=== PATIENT | female | born 1945 | race Caucasian/White ===

== ENCOUNTER → 2022-11-24 15:03 | Outpatient (BNVA) | payer MEDICARE, OTHER, SELFPAY | PROVIDERS: PCP Internal Medicine; Visit Provider Hospitalist | DX: R94.39 Abnormal result of other cardiovascular function study (principal); J45.909 Unspecified asthma, uncomplicated; J84.9 Interstitial pulmonary disease, unspecified | CPT/HCPCS: 99202 ==

== ENCOUNTER 2023-01-25 13:16 | Outpatient (REF) | payer MEDICARE, OTHER, SELFPAY ==
[2023-01-25 14:06] LABS: MANUAL DIFF FLAG NO
[2023-01-25 14:48] LABS: Basophils Absolute Auto 0.1 X10*3/uL (0.0-0.2); Basophils Percent Auto 0.8 % (0-2); Eosinophils Absolute Auto 0.2 X10*3/uL (0.0-0.4); Eosinophils Percent Auto 1.9 % (0-4); Hematocrit 39.5 % (37.0-47.0); Hemoglobin 13.1 g/dl (12.0-16.0); Imm Gran Abs Auto 0.04 X10*3/uL (0.00-0.03); Imm Gran Pct Auto 0.5 % (0.0-0.4); Lymphocytes Absolute Auto 1.5 X10*3/uL (1.2-4.9); Lymphocytes Percent Auto 18.9 % (20-40); Mean Corpuscular HGB Conc 33.2 g/dl (31.0-35.0); Mean Corpuscular Hemoglobin 31.4 pg (27.0-33.0); Mean Corpuscular Volume 94.7 fL (80.0-98.0); Mean Platelet Volume 9.7 fL (9.4-12.3); Monocytes Absolute Auto 0.4 X10*3/uL (0.1-1.2); Monocytes Percent Auto 5.2 % (2-11); Neutrophils Absolute Auto 5.7 x10*3/uL (2.0-8.3); Neutrophils Percent Auto 72.7 % (45-73); Platelet Count 213 X10*3/uL (160-400); Red Blood Count 4.17 X10*6/uL (4.20-5.50); Red Cell Distribution Width 11.8 % (11.0-16.0); White Blood Count 7.8 X10*3/uL (4.8-10.8)
[2023-01-25 15:53] LABS: Erythrocyte Sedimentation Rate 7 MM/HR (0-20)
[2023-01-28 15:28] LABS: Anti Nuclear Antibody Screen NEGATIVE (NEGATIVE)
[2023-01-29 11:12] LABS: IgA 97 mg/dL (70-320); IgG 533 mg/dL (600-1540); IgM 89 mg/dL (50-300)
== END 2023-01-25 13:17 | disposition home or self-care (01) ==
LOC: HO.LAB 13:16
PROVIDERS: PCP Internal Medicine; Visit Provider Hospitalist
DX: J84.9 Interstitial pulmonary disease, unspecified (principal); J45.909 Unspecified asthma, uncomplicated; R94.39 Abnormal result of other cardiovascular function study; Z91.09 Other allergy status, other than to drugs and biological substances
CPT/HCPCS: 36415; 82784; 82785; 85025; 85652; 86003; 86038; 86039; 99212

== ENCOUNTER 2023-06-18 14:08 | Outpatient (REF) | payer MEDICARE, OTHER, SELFPAY ==
--- NOTE | ~2023-06-18 | XR_ITS ---
EXAMINATION: XR CHEST CLINICAL INFORMATION: Chest pain COMPARISON: None available. TECHNIQUE: 2 views of the chest were obtained. FINDINGS: The cardiac and mediastinal contours are normal. The lungs are clear. No pleural effusion or pneumothorax. Degenerative changes of the spine and mild scoliosis. Postsurgical changes to the left shoulder. Evidence of previous upper abdominal hernia repair with mesh. XR/XR chest 2V IMPRESSION: No evidence for acute disease in the chest.
== END 2023-06-18 14:09 | disposition home or self-care (01) ==
LOC: HO.XRAY 14:08
PROVIDERS: PCP Internal Medicine; Visit Provider Hospitalist
DX: J45.909 Unspecified asthma, uncomplicated (principal); J84.9 Interstitial pulmonary disease, unspecified; R07.9 Chest pain, unspecified
CPT/HCPCS: 71046; 99212

== ENCOUNTER 2023-06-18 14:08 | Outpatient (AMB) | payer MEDICARE, OTHER, SELFPAY ==
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
[2023-06-18 14:16] VITALS: PULSE 68; O2SAT 97; BMI 30.7
== END 2023-06-18 15:04 | disposition home or self-care (01) ==
PROVIDERS: PCP Internal Medicine; Visit Provider Hospitalist
DX: J45.909 Unspecified asthma, uncomplicated (principal); J84.9 Interstitial pulmonary disease, unspecified; R07.9 Chest pain, unspecified
CPT/HCPCS: 99214

== ENCOUNTER 2024-03-27 14:17 | Outpatient (AMB) | payer MEDICARE, OTHER, SELFPAY ==
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
[2024-03-27 14:30] VITALS: PULSE 69; O2SAT 97; BMI 26.5
== END 2024-03-27 14:51 | disposition home or self-care (01) ==
PROVIDERS: PCP Internal Medicine; Visit Provider Hospitalist
DX: J45.40 Moderate persistent asthma, uncomplicated (principal); J84.9 Interstitial pulmonary disease, unspecified; R07.9 Chest pain, unspecified
CPT/HCPCS: 99214

== ENCOUNTER → 2024-03-27 14:17 | Outpatient (BNVA) | payer MEDICARE, OTHER, SELFPAY | PROVIDERS: PCP Internal Medicine; Visit Provider Hospitalist | DX: J45.40 Moderate persistent asthma, uncomplicated (principal); J84.9 Interstitial pulmonary disease, unspecified; R07.9 Chest pain, unspecified; I47.10 Supraventricular tachycardia, unspecified | CPT/HCPCS: 99212 ==

== ENCOUNTER 2025-03-10 14:09 | Outpatient (AMB) | payer MEDICARE, OTHER, SELFPAY ==
[2025-03-10 14:13] VITALS: BP 132/74; PULSE 64; O2SAT 94; BMI 28.6
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
--- OUTSIDE RECORDS SUMMARY | 2025-03-10 15:20 | XMS_ITS | Encounter Summary ---
Author Organization [employer] Address [address] [facility] 7[address] [place] [address] Care Team Providers Care Shredding Machine Tender Name Role Phone Alicia Hdez MD Primary Care Provider [phone] Encounter Details Date Type Department Care Team (Late Contact Info) Description 10/19/[address] [facility] MEDICAL [address] [place] [address] Alicia Hdez MD [address] [place] [address] Social History Tobacco Use Types Packs/Day Years Used Date Smoking Tobacco: Never Smokeless Tobacco: Never Alcohol Use Standard Drinks/Week Comments Yes 1 (1 standard drink = 0.6 oz pur e alcohol) Comments Unknown Sex and Gender Information Value Date Recorded Sex Assigned at Female 10/18/2022 12:37 PM EST Legal Sex Female 8:36 PM EDT Gender Identity Female 10/18/2022 12:37 PM EST Sexual Orientation Straight 10/19/2022 12 :22 PM EST COVID-19 Exposure Response Date Recorded In the last 10 days, have yo u been in contact with someone who was confirmed or suspected to have Coronavirus/COVID-19? No / Unsure 10/19/2022 11:09 AM EST documented as of this encounter Plan of Treatment Upcoming Encounters Date Type Department Care Team (Late Contact Info) Description 06/11/2025 11:30 AM EDT Office Visit [facility] MEDICAL [address] [place] [address] Alicia Hdez MD [address] [place], [place] [phone] documented as of this encounter Procedures Procedure Name Priority Date/Time Associated Diagnosis Comments OXYCODONE/OXYMORPHO NE, WITH CONFIRMATION, ORAL FLUID Routine 07/25/2023 11:41 AM EDT documented in this encounter Results * (ABNORMAL) Oxycodone/Oxymorphone, w/Confirmation, Oral Fluid (07/25/2023 11:41 AM EDT) oxyCODONE+oxyMOR phone in Saliva POSITIVE(A) [facility] Comment: Reference range: Cutoff EQ 40 (NOTE) Test includes Oxycodone and Oxymorphone Confirmation performed by Mass Spectrometry oxyCODONE in Saliva POSITIVE(A) [facility] Oxycodone 348 [facility] Comment: Reference range: Cutoff EQ 40 Unit: ng/mL oxyMORphone in Saliva NEGATIVE [facility] Comment: Reference range: Cutoff EQ 40 Testing performed or reported by [facility], a Service of [facility], [address] [place] [id number] Xiang Myles MD, Manager Resort [facility]# [id number] 07/25/2023 11:4 1 AM EDT 07/25/2023 11:16 PM EDT Cherry Rodriguez SQUADRON WORKER LAB BODY FLUIDS AND STOOLS ORDER GRETCHEN Final Result Performing Organization Address [facility]/State/[facility] Co de Phone Number [facility] [address] [place] [phone] documented in this encounter Visit Diagnoses Not on filedocumented in this encounter Care Teams Shredding Machine Tender Relationship Specialty Start Date End Date Alicia Hdez MD [address] [place] [address] PCP - General Internal Medicine 10/25/22January Elsa Registered Nurse Case Management 08/08/23 documented as of this encounter
--- OUTSIDE RECORDS SUMMARY | 2025-03-10 15:20 | XMS_ITS | Continuity of Care Document ---
Author Organization [facility] Address [address] [place] [address] Phone Care Team Providers Care Population Health Coach Name Role Phone Filiberto Tena Unavailable Unavailable Allergies, Adverse Reactions, Alerts Substance Reaction Status Criticality morphine Active No Information Sulfa (Sulfonamide Antibiotics) Active No Information ibuprofen Active No Information Penicillins Active No Information Medications Medication Instructions Dosage Effective Dates (start - stop) Status Comments simvastatin 40 mg tablet - Activ e hydrochlorothiazide 25 mg tablet - Active citalopram 20 mg tablet - Active oxycodone 5 mg tablet as needed - Active loratadine 10 mg tablet - Active Procedures Procedure Date Endovenous Rf, 1st Vein Office/Oupt E&M New Pt 45 Mins 16 Advance Care Plan Duplex Scan-extrem Veins; Comp 16 Advance Directives Directive Yes / No Effective Date File Name No Information Encounters Encounter Description Practice Location Reason(s) For Visit Diagnoses Date Provider Providers Copied on Encounter [facility], [address], [place], [place], [id number], [place] tel:[phone] [place] Varicose veins of left lower extremities w oth complicationsVaric ose veins of left lower extremities with pain 6 Darinel De Los Santos. [address], [address], [facility] [place], [address], [place]. [phone] Referring Provider: Alicia Regalado, [address], [address]. tel:[phone] Office/Oupt E&M New Pt 45 Mins [facility], [address] [place] [address], [id number], tel:[phone] [place] Varicose veins of bilateral lower extremities with painVenous insufficiency (chronic) (peripheral) 6 [facility]. [address] [place] [address], [address], [place], [address], [place]. tel: [phone] Referring Provider: Alicia Regalado, [address], [address]. tel:[phone] [facility], [address] [place] [address], [place], [place], [id number], tel:[phone] [place] Chronic venous htn w oth comp of bilateral low extrm 6 [facility]. [address], [address], [place], [address], [place]. tel: [phone] Referring Provider: Alicia Regal[place], [address], [address]. tel:[phone] Family History Family Member Type Diagnosis Age At Onset No Information Payers Payer name Insurance type Covered constitution party ID Authoriza tion(s) No Information Social History Type Description Quantity Date Captured Comments Sex Female Smoking Status No Information Chief Complaint And Reason For Visit No Information Reason For Referral Reason For Referral No Information Plan Of Treatment Date Type Action Status Referral Ordered: Duplex Scan-extrem Veins; Comp ordered History Of Present Illness Encounter Date Complaint History Of Prese nt Illness No Information Functional Status Date Functional Assessmen t No Information Instructions Date Instruction Additional Infor mation No Information Assessments Type Assessment Date No Information Patient Care Teams Name Effective Dates (start - stop) Status Members No Information
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
--- OUTSIDE RECORDS SUMMARY | 2025-03-10 15:20 | XMS_ITS | Encounter Summary ---
Author Organization [employer] Address [address] 7[address] [place] [address] Care Team Providers Care Rotary Furnace Tender Name Role Phone Alicia Hdez MD Primary Care Provider [phone] Encounter Details Date Type Department Care Team (Late st Contact Info) Description 08/27/2024 Orders Only [facility] MEDICAL [address] [place] [address] ProviderGrey MD Social History Tobacco Use Types [...] Description 06/11/2025 11:30 AM EDT Office Visit [facility] MEDICAL [address] [place] [address] Alicia Hdez MD [address] [place] [address] documented as of this encounter Procedures Procedure Name Priority Date/Time Associated Diagnosis Comments ECG 12-LEAD Routine 08/20/2024 3:23 PM EDT documented in this encounter Results * ECG 12 lead (08/20/2024 3:23 PM EDT) us Historical Provider ECG ORDERABLES Final Res ult documented in this encounter Visit Diagnoses Not on filedocumented in this encounter Care Teams Rotary Furnace Tender Relationship Specialty Start Date End Date Alicia Hdez MD [address] [place] [address] PCP - General Internal Medicine 10/25/22January Elsa Registered Nurse Case Management 08/08/23 documented as of this encounter
--- OUTSIDE RECORDS SUMMARY | 2025-03-10 15:20 | XMS_ITS | Patient Health Record ---
Author Organization [facility] Address [address] [address] Support Name Relationship Address Phone VEE SUMNER Guarantor Unknown [phone] Allergies Allergen (clinical drug ingredient) Drug/Non Drug Allergy documented on EMR Reaction Allergy Type Onset Date Status Penicillin (uncoded) Unknown Allergy Active Substance with sulfonamide structure and antibacterial mechanism of action (substance) sulfa (uncoded) Unknown Allergy Active amoxicillin Amoxicillin Unknown Drug Allergy Act toby ibuprofen Ibuprofen Unknown Drug Allergy Active Reason For Referral No Information Medications Medication SIG (Take, Route, Frequency, Duration) Notes Start Date End Date Status Simvastatin 20 MG 1 tablet in the even ing Orally Once a day Active Decadron 4 MG 1 tablet Orally Once a day Active Lisinopril 30 MG 1 tablet Orally Once a day Active Sertraline HCl 20 MG/ML Give 100 mg by m outh one time a day for DEPRESSION Orally Once a day for 30 day(s) Active valACYclovir HCl 1 GM 1 tablet Orally Once a day Active Acetaminophen 325 MG 2 tab Orally every 6 hours prn Active Senna 8.6 MG 1 tablets at bedtime as needed Orally Once a day Active Flovent HFA 110 MCG/ACT 1 puff Inhalatio n Twice a day Active hydroCHLOROthiazide 25 MG 1 tablet in th e morning Orally Once a day Active Fleet Enema 7-19 GM/118ML PRN daily Rectal Active Benzonatate 150 MG 1 capsule Orally Thr ee times a day Active Atenolol 25 MG Give 12.5 mg by mout h one time a day for HTN Orally Once a day Active Problems Problem Type SNOMED Code ICD Code Onset Dates Problem Status W/U Status Risk Notes Problem 36658487 Essential hypertension (I10) Active confirmed Continue on hydrochlorothiazide atenolol and lisinopril Problem 98841892 Hypercholesterol peggy a (E78.00) Active confirmed Continue on simvastatin physical and Occupational Therapy Plan Of Treatment No Information Insurance Providers Payer Name Payer Address Payer Phone Subscriber Number Group Number Insured Name Patient Relationship to Insured Coverage Start Date Coverage End Date Medicare Of [employer] [place] [id number] [id number] VEE SUMNER Self - patient is the insured Medical (General) History Medical History History ICD Code Viral pneumonia, unspecified J12.9 COVID-19 U07.1 Essential (primary) hypertension I10 Unspecified asthma with (acute) exacerba tion J45.901 Paroxysmal atrial fibrillation I48.0 Hyperlipidemia, unspecified E78.5 Major depressive disorder, recurrent, un specified F33.9 Age-related osteoporosis without current pathological fracture M81.0 Other specified anxiety disorders F41.8 Surgical History Surgery Date(Month/Year) No history Hospitalization History Reason Date(Month/Year) [facility] with COVID 19 09/2020
--- OUTSIDE RECORDS SUMMARY | 2025-03-10 15:20 | XMS_ITS ---
Author Organization [facility] Care Team Providers Care Tow Feeder Name Role Phone Kian Torre Unavailable Unavailable Milena Lee Unavailable Unavailable Allergies and adverse reactions Code CodeSystem Substance Reaction Severity StartDate Concern Status 404997507 SNOMED CT Sulfa Antibiotics Nausea (co de- 265923144, SNOMED CT) Moderate 10/13/[address] Penicillins Nausea (code- 672374566, SNOMED CT) Moderate 10/13/2020 active 5640 RXNORM Ibuprofen Nausea (code- 390751190, SNOMED CT) Moderate 10/13/2020 active 723 RXNORM Amoxicillin Nausea (code- 734128863, SNOMED CT) Moderate 10/13/2020 active Care Team Name Role Address Phone Organization Dates Kian Torre PCP [address], [place], [address], [place] (Office): : [facility] 10/13/2020 - 10/19/2020 Milena Lee [address], [place], [address], [place] (Office): [facility] 10/13/2020 - 10/19/2020 Mental Status Section Date Assessment Total Score Description 10/19/2020 BIMS 15 cognitively int act CAM 0 No delirium ind icated PHQ-9 14 moderate depres mira Problems Problem # Description Date of onset Resolved Date Code CodeSystem Concern Status 1 BRADYCARDIA, UNSPECIFIED 10/13/[address] active 2 COVID-19 10/13/[address] active 3 ESSENTIAL (PRIMARY) HYPERTENSION 10/13/[address] active 4 HYPERLIPIDEMIA, UNSPECIFIED 10/13/[address] active 5 MAJOR DEPRESSIVE DISORDER, RECURRENT, UNSPECIFIED 10/13/[address] active 6 MUSCLE WASTING AND ATROPHY, NOT ELSEWHERE CLASSIFIED, UNSPECIFIED SITE 10/13/[address] active 7 OTHER FATIGUE 10/13/[address] acti ve 8 PAROXYSMAL ATRIAL FIBRILLATION 10/13/[address] active 9 UNSPECIFIED ASTHMA WITH (ACUTE) EXACERBATION 10/13/[address] active 10 VIRAL PNEUMONIA, UNSPECIFIED 10/13/[address] active Reason for Referral No Reasons for Referral Entered Social History Social History Observation Description Start Date End Date Code Code System Current Smoking Status Tobacco smoking consumption unknown 230431225 SNOMED CT Sex Assigned At Female 1945 31845-9 [facility] Gender Identity Vital Signs Code Code System Vitals Name Values and Units Timing Information 9279-1 [facility] Respiratory Rate Value=18.0 Units=/m in 10/19/2020 8462-4 [facility] Blood Pressure-Diastolic Value=63 Un its=mmHg 10/19/2020 8480-6 [facility] Blood Pressure-Systolic Ntrit=977 Un its=mmHg 10/19/2020 8310-5 [facility] Body Temperature Value=97.6 Units=?? F 10/19/2020 8867-4 [facility] Heart rate Value=60.0 Units=/min 84236-5 [facility] O2 % BldC Oximetry Value=95.0 Units= % 10/19/2020 05590-8 [facility] Pain Level Value=0.0 10/19/2020 72719-7 [facility] Weight Wcnez=390.6 Units=Lbs 8302-2 [facility] Height Value=62.0 Units=Inches 10/14/2020
--- OUTSIDE RECORDS SUMMARY | 2025-03-10 15:20 | XMS_ITS | Encounter Summary ---
Author Organization [employer] Address [address] 7[address] [place] [address] Care Team Providers Care Sawmill Moulder Operator Name Role Phone Alicia Hdez MD Primary Care Provider [phone] Reason for Visit * Reason Comments Med Refill Encounter Details Date Type Department Care Team (Late st Contact Info) Description 02/12/2023 Refill [facility] MEDICAL [address] [place], [place] [phone] Alicia Hdez MD [address] [place] [address] Chronic pain disorder Social History Tobacco Use Types Packs/Day Years Used Date Smoking Tobacco: Never Smokeless Tobacco: Never Alcohol Use Standard Drinks/Week Comments Yes 1 (1 standard drink = 0.6 oz pur e alcohol) PHQ-2 Answer Date Recorded Patient Health Questionnaire-2 Score 0 01/05/2023 Depression Answer Date Recorded Patient Health Questionnaire-2 [...] suspected to have Coronavirus/COVID-19? No / Unsure 02/02/2023 12:03 PM EDT documented as of this encounter Miscellaneous Notes * Telephone Encounter - Alana Pennington - 02/14/2023 12:00 PM EDT Oxycodone/APAP 5-325 # 112/28 days [facility] Last fill Date: 01/16/23 Last OV: 02/02/23 Next OV: 05/08/23 Last UTOX: 03/02/22 should be updated CSA Date: should be updated DNF Date: patient is due Reminder set up for next refill documented in this encounter Plan of Treatment Upcoming Encounters Date Type Department Care Team (Late st Contact Info) Description 06/11/2025 11:30 AM EDT Office Visit [facility] MEDICAL [address] [place] [address] Alicia Hdez MD [address] [place] [address] documented as of this encounter Visit Diagnoses Diagnosis Chronic pain disorder Chronic pain syndrome documented in this encounter Care Teams Sawmill Moulder Operator Relationship Specialty Start Date End Date Alicia Hdez MD [address] [place] [address] PCP - General Internal Medicine 10/25/22January Elsa Registered Nurse Case Management 08/08/23 documented as of this encounter
--- OUTSIDE RECORDS SUMMARY | 2025-03-10 15:20 | XMS_ITS ---
Author Organization [facility] Care Team Providers Care Ict Support Engineer Name Role Phone , Vikram Unavailable Unavailable Shayan, Letha Unavailable Unavailable Eckensaranyae, Genoveva Unavailable Unavailable Albert, Ikram Unavailable Unavailable Urkevic, Akin Unavailable Unavailable Magoba, Angelica Rosenda Unavailable Unavailable Mike, Helder Unavailable Unavailable Ze, Tj Unavailable Unavailable Allergies and adverse reactions Code CodeSystem Substance Reaction Severity StartDate Concern Status 731305556 SNOMED CT Sulfa Antibiotics Unknown 10/10/2020 active 7984 RXNORM Penicillin Unknown 10/10/2020 active Lactose Nausea (code- 030527048, SNOMED CT) Mild 10/12/2020 active 5640 RXNORM Ibuprofen Unknown 10/10/2020 active 723 RXNORM Amoxicillin Unknown 10/10/2020 active Care Team Name Role Address Phone Organization Dates Vikram Jajat PCP [address], [address], [place] (Office): : : [facility] 10/11/2020 - 10/13/2020 Letha Downey [address], [address], [facility] (Office): [facility] 10/11/2020 - 10/13/2020 Genoveva Marshallrode [address] [facility], [place], [address], [place] (Office): : [facility] 10/11/2020 - 10/13/2020 Garfield Price [address] [facility] [address], [place], [address], [place] (Office): : [facility] 10/11/2020 - 10/13/2020 Akin Lou [address] [place], [address], [place] (Office): : [facility] 10/11/2020 - 10/13/2020 Angelica Montoya [id number] [place] [address], [address], [place] (Office): : [facility] 10/11/2020 - 10/13/2020 [facility] [address] [place], [address], [place] (Office): [facility] 10/11/2020 - 10/13/2020 Tj Kunz [address] [facility] [address], [place], [address], [place] (Office): [facility] 10/11/2020 - 10/13/2020 Medications Section Medication Name Status Code CodeSystem Dose Route Frequency Admin Type Sig Text Start Date End Date Fleet Enema Enema 7-19 GM/118ML active 203613 RXNORM 1 unit Rectal as needed PRN Insert 1 unit rectal ly every 24 hours as needed for Consti pation Use only if Bisaco dyl Suppos itory is ineffe ctive 2019 - Acetaminophen Tablet 325 MG active 963727 RXNORM 2 tablet Oral as needed PRN Give 2 tablet by mouth every 6 hours as needed for Pain Do not exceed 3 grams in 24 hours. T otal 650 mg AND Give 2 tablet by mouth every 6 hours as needed for Elevat ed temp >101 Do not exceed 3 grams in 24 hours. T otal 650 mg 2019 - 369805 RXNORM 2 tablet Oral as needed PRN Give 2 tablet by mouth every 6 hours as needed for Pain Do not exceed 3 grams in 24 hours. T otal 650 mg AND Give 2 tablet by mouth every 6 hours as needed for Elevat ed temp >101 Do not exceed 3 grams in 24 hours. T otal 650 mg 2019 - Senna Tablet 8.6 MG active 079154 RXNORM 1 tablet Oral as needed PRN Give 1 tablet by mouth every 24 hours as needed for Consti pation 2019 - Flovent HFA Aerosol 110 MCG/ACT active 284749 RXNORM 1 puff Inhalat ion two times a day Routine 1 puff inhale orally two times a day for asthma 2019 - Sertraline HCl Concentrate 20 MG/ML active 163970 RXNORM 100 mg Oral one time a day Routine Give 100 mg by mouth one time a day for DEPRES DANIEL 2019 - valACYclovir HCl Tablet 1 GM active 631480 RXNORM 1 tablet Oral one time a day Routine Give 1 tablet by mouth one time a day for shingl es 2019 - Decadron Tablet 4 MG active 359882 RXNORM 1 tablet Oral two times a day Routine Give 1 tablet by mouth two times a day for PNA 2019 - Lisinopril Tablet 30 MG active 118205 RXNORM 1 tablet Oral one time a day Routine Give 1 tablet by mouth one time a day for HTN 2019 - Simvastatin Tablet 20 MG active 805032 RXNORM 1 tablet Oral at bedtime Routine Give 1 tablet by mouth at bedtim e for HLD 2019 - Benzonatate Capsule 150 MG active 264031 RXNORM 1 capsul e Oral three times a day Routine Give 1 capsul e by mouth three times a day for COUGH 2019 - Atenolol Tablet 25 MG active 985885 RXNORM 12.5 mg Oral one time a day Routine Give 12.5 mg by mouth one time a day for HTN 2019 - hydroCHLOROth iazide Tablet 25 MG active 968989 RXNORM 1 tablet Oral in the morning Routine Give 1 tablet by mouth in the mornin g for HTN 2019 - Mental Status Section Date Assessment Total Score Description 10/13/2020 BIMS 15 cognitively int act CAM 0 No delirium ind icated PHQ-9 00 Problems Problem # Description Date of onset Resolved Date Code CodeSystem Concern Status 1 AGE-RELATED OSTEOPOROSIS WITHOUT CURRENT PATHOLOGICAL FRACTURE 10/10/[address] active 2 COUGH 10/10/[address] active 3 COVID-19 10/10/[address] active 4 ESSENTIAL (PRIMARY) HYPERTENSION 10/10/[address] active 5 HYPERLIPIDEMIA, UNSPECIFIED 10/10/[address] active 6 MAJOR DEPRESSIVE DISORDER, RECURRENT, UNSPECIFIED 10/10/[address] active 7 OTHER SPECIFIED ANXIETY DISORDERS 10/10/[address] active 8 PAROXYSMAL ATRIAL FIBRILLATION 10/10/[address] active 9 UNSPECIFIED ASTHMA WITH (ACUTE) EXACERBATION 10/10/[address] active 10 UNSPECIFIED PROTEIN-CALORIE MALNUTRITION 10/10/[address] active 11 VIRAL PNEUMONIA, UNSPECIFIED 10/10/[address] active Reason for Referral No Reasons for Referral Entered Social History Social History Observation Description Start Date End Date Code Code System Current Smoking Status Tobacco smoking consumption unknown 992274262 SNOMED CT Sex Assigned At Female 1945 [address] [facility] Gender Identity Vital Signs Code Code System Vitals Name Values and Units Timing Information 29585-8 LOINC Pain Level Value=1.0 10/13/2020 9279-1 LOINC Respiratory Rate Value=18.0 Units=/m in 10/13/2020 8462-4 LOINC Blood Pressure-Diastolic Value=66 Un its=mmHg 10/13/2020 8480-6 LOINC Blood Pressure-Systolic Qpvwe=085 Un its=mmHg 10/13/2020 8310-5 LOINC Body Temperature Value=97.4 Units=?? F 10/13/2020 8867-4 LOINC Heart rate Value=62.0 Units=/min 87644-8 LOINC O2 % BldC Oximetry Value=97.0 Units= % 10/13/2020 2339-0 LOINC Blood Sugar Urvoy=254.0 Units=mg/dL 10/13/2020 8302-2 LOINC Height Value=62.0 Units=Inches 10/11/2020 58863-8 LOINC Weight Sglqk=783.2 Units=Lbs
--- OUTSIDE RECORDS SUMMARY | 2025-03-10 15:20 | XMS_ITS ---
Author Organization [facility] Address [address] [place] [address] Care Team Providers Care Neon Molder Name Role Phone Alicia Hdez MD Primary Care Provider Unavailab Jose Manuel Denton Unavailable [phone] REASON FOR VISIT Refax NEOS Encounters Encounter Location Date Provider Diagnosis [address] [address] 02/06/2025 Jose Manuel Oliveira Plan Of Treatment Next Appt Details Provider Name:Jose Manuel Oliveira , 04/13/2025 02:45:00 PM, [address] [facility], [address], [place], [address], Progress Notes * Giselle SHRESTHA DDOB: [birth year] (79 yo F)Acc No.[id number]:02/06/2025 Patient:?Giselle SHRESTHA :1945???Age:79 Y???Sex:Female Address:[address] [facility] [address] [address] * true * Date:? Generated for Jili natasha/Elvia/eTransmitting on:?03/10/2025 03:20 PM EDT
--- OUTSIDE RECORDS SUMMARY | 2025-03-10 15:20 | XMS_ITS ---
Author Organization [facility] Address [address] [place] [address] Care Team Providers Care Coil Rewind Machine Operator Name Role Phone Alicia Hdez MD Primary Care Provider Unavailab Jose Manuel Denton Unavailable [phone] REASON FOR VISIT wants note faxed to [facility] Encounters Encounter [facility] Date [facility] [address] [facility]/2025 Jose Manuel Oliveira Plan Of Treatment Next Appt Details Provider Name:Jose Manuel Oliveira , 04/13/2025 02:45:00 PM, [facility], [address] [address], [place], [address], Progress Notes * Giselle SHRESTHA DDOB: (79 yo F)Acc No.[id number]:02/04/2025 Patient:?Giselle SHRESTHA :1945???Age:79 Y???Sex:Female Address:[address] [facility] [address] [address] * true * Date:? Generated for Printi natasha/Fasamanthag/eTransmitting on:?03/10/2025 03:20 PM EDT
--- OUTSIDE RECORDS SUMMARY | 2025-03-10 15:21 | XMS_ITS | Continuity of Care Document ---
Author Organization [facility] Address [address] [place] [address] Phone Care Team Providers Care Furniture Mover Name Role Phone Geovany PAL, RVT, RPVI, Tj Unavailable U navailable Allergies, Adverse Reactions, Alerts Substance Reaction Status Criticality gabapentin Active No Information doxycycline Active No Information buspirone Active No Information tetracycline Active No Information Sulfa (Sulfonamide Antibiotics) Active No Information PENICILLIN Active No Information aspirin Active No Information Medications Medication Instructions Dosage Effective Dates (start - stop) Status Comments lisinopril 40 mg tablet - Active rosuvastatin 40 mg tablet - Acti ve montelukast 10 mg tablet - Activ e Eliquis 5 mg tablet - Active cetirizine 10 mg tablet - Active carvedilol 6.25 mg tablet - Acti ve Procedures Procedure Date Office/Outpt E&M Established 25 Mins- CT & [place] Duplex Scan-extrem Veins; Comp- CT & [place] Duplex Scan-extrem Veins; Uni/ CT & [place] D Duplex Scan-extrem Veins; Uni/ CT & [place] D Inj Scleros Solut; Mx Veins 1- CT & [place] D Ultrason Guidan Needle Bx-rad- CT & [place] D Inj Scleros Solut; Mx Veins 1- CT & [place] D Ultrason Guidan Needle Bx-rad- CT & [place] D PT Did Not Receive Services Duplex Scan-extrem Veins; Uni/ CT & [place] D Endovenous Laser, 1st Vein- CT & [place] Ultrason Guidan Needle Bx-rad- CT & [place] D Inj Sclerosing Solution; Sngl- CT & [place] D Office/Outpt E&M Established 15 Mins- CT & [place] Duplex Scan-extrem Veins; Comp- CT & [place] Duplex Scan-extrem Veins; Uni/ CT & [place] O ct Inj Scleros Solut; Mx Veins 1- CT & [place] O ct Duplex Scan-extrem Veins; Uni/ CT & [place] O ct Duplex Scan-extrem Veins; Uni/ CT & [place] O ct Inj Scleros Solut; Mx Veins 1- CT & [place] O ct Ultrason Guidan Needle Bx-rad- CT & [place] O Varithena, Single Truncal Vein - CT & [place] Offic/outpt E&m Estab 5 Min Trial- Telem edicine CT & [place] Office/Oupt E&M New Pt 30 Mins- CT & [place] Duplex Scan-extrem Veins; Comp- CT & [place] Advance Directives Directive Yes / No Effective Date File Name Other Directive No 11/26/2024 N/A WARNING:The information contained in this section is historical and is provided for information only and does not constitute a legal document or any assurance that the information is still accurate. Please verify the information with the [place] of the legal document before using it for clinical purposes. Encounters Encounter Description Practice Location Reason(s) For Visit Diagnoses Date Provider Providers Copied on Encounter Office/Outpt E&M Established 25 Mins- CT & [place] [facility], [address], [place], [id number], [place] tel:[phone] R - [place] Varicose veins of bilateral lower extremities with other complicationsE ssential (primary) hypertension Geovany PAL, RVT, CAROL Spencer. [address], [place], [id number] , [place]. [phone] Referring Provider: Alicia Regalado, [address], [address]. tel:[phone] [facility], [address] [place] [address] [address]Kevin [place], [id number], [place] tel:[phone] CVR - [place] Pain in right legPain in left leg 5 Geovany PAL RVT, CAROL Spencer. [address] [place] [address], [place], [id number] , [place]. [phone] Referring Provider: Alicia Regalado, [address] [place] [address], [address]. tel:[phone] [facility], [address] [place] [address] [address] Steele [address]Kevin [place], [id number], [place] [phone] CV[place] - [place] Encounter for follow-up examination after completed treatment for conditions other than malignant neoplasmVarico se veins of left lower extremity with pain 4 Geovany PAL RVT, CAROL Spencer. [address] [place] [address], [place], [id number] , [place]. [phone] Referring Provider: Alicia Regalado, [address] [place] [address], [address]. tel:[phone] [facility], [address] [place] [address] [facility] [address]Kevin [place], [id number], [place] tel:[phone] [place] Encounter for follow-up examination after completed treatment for conditions other than malignant neoplasmPain in left leg 4 Geovany PAL RVT, CAROL Spencer. [address] [place] [address], [facility] [place], [id number] , [place]. [phone] Referring Provider: Alicia Regalado, [address], [address]. tel:[phone] [facility], [address] [place] [address] [address]Kevin [place], [id number], [place] tel:[phone] CVR - [facility] Chronic venous hypertension (idiopathic) with inflammation of left lower extremity 4 Geovany PAL RVT, CAROL Spencer. [address] [place] [address], [place] [address], [facility] [place] [place], [id number] , [place]. [phone] Referring Provider: Alicia Regalado, [address], [address]. tel:[phone] [facility], [address] [place] [address] Dr Steele [address]Kevin [place], [id number], [place] tel:[phone] CVR - [facility] Varicose veins of left lower extremity with other complications 4 eGovany PAL RVT, RPVI Robert. [address] [place] [address], [facility] [place], [id number] , [place]. [phone] Referring Provider: Alicia Reaglado, [address], [address]. tel:[phone] [facility], [address] [place] [address] Dr [address] [address] [place], [id number], [place] tel:[phone] CVR - [facility] No Information 4 Geovany PAL RVT, RPVI Robert. [address] [place] [address], [place] [address], [facility] [place] [place], [id number] , [place]. [phone] Referring Provider: Alicia Regalado, [address], [address]. tel:[phone] [facility], [address] [place] [address] [address]Kevin [place], [id number], [place] tel:[phone] CVR - [facility] Encounter for follow-up examination after completed treatment for conditions other than malignant neoplasmPain in right leg 4 Geovany PAL RVT, RPVI Robert. [address] [place] [address], [place] [address], [facility], [id number] , [place]. tel:[phone] Referring Provider: Alicia Regalado, [address], [address]. tel:[phone] [facility], [address] [place] [address] Dr [address] 1000[facility] [address]Kevin [place], [id number], [place] tel:[phone] CV[place] Chronic venous hypertension (idiopathic) with inflammation of right lower extremity 4 Geovany PAL RVT, CAROL Spencer. [address] [place] [address], [place], [place], [id number] , [place]. [phone] Referring Provider: Alicia Regalado, [address] [place] [address], [address]. tel:[phone] Office/Outpt E&M Established 15 Mins- CT & [place] [facility], [address] [place] [address] [place] [address], [id number], [place] tel:[phone] [place] Varicose veins of bilateral lower extremities with other complicationsE ssential (primary) hypertensionPr uritus, unspecified 4 Geovany PAL RVT, RPVI Robert. [address] [place] [address], [place], [place], [id number] , [place]. [phone] Referring Provider: Alicia Regalado, [address] [place] [address], [address]. tel:[phone] [facility], [address] [place] [address] [facility] [address] [address], [id number], [place] tel:[phone] [place] Varicose veins of bilateral lower extremities with pain 4 Geovany PAL RVT, RPVI Robert. [address] [place] [address], [place], [place], [id number] , [place]. tel:[phone] Referring Provider: Alicia Regalado, [address] [place] [address], [address]. tel:[phone] [facility], [address] [place] [address] Dr Steele 1000[address] 1000Kevin [place], [id number], [place] tel:[phone] [place] Encounter for follow-up examination after completed treatment for conditions other than malignant neoplasmVarico se veins of left lower extremity with other complications Oct-1 4 Geovany PAL RVT, RPVI Robert. [address] [place] [address], [place], [place], [id number] , [place]. tel:[phone] Referring Provider: Alicia Regalado, [address], [address]. tel:[phone] [facility], [address] [place] [address] [address] [address] [place], [id number], [place] tel:[phone] [place] Venous insufficiency (chronic) (peripheral) Oct-0 4 Geovany PAL RVT, RPVI Robert. [address] [place] [address], [place], [place], [id number] , [place]. tel:[phone] Referring Provider: Alicia Regalado, [address], [address]. tel:[phone] [facility], [address] [place] [address] Dr [address] [facility] [place], [id number], [place] tel:[phone] [place] Varicose veins of left lower extremity with inflammation Oct-0 4 Geovany PAL RVT, RPVI Robert. [address] [place] [address], [place], [place], [id number] , [place]. [phone] Referring Provider: Alicia Regalado, [address], [address]. tel:[phone] [facility], [address] [place] [address] Dr Steele 1000Suite Kevin Leiva [place], [id number], [place] tel:[phone] [place] Encounter for follow-up examination after completed treatment for conditions other than malignant neoplasmVarico se veins of right lower extremity with pain Oct-0 4 Geovany PAL RVT, RPVI Robert. [address] [place] [address], [place] [address], [facility] [place] [place], [id number] , [place]. tel:[phone] Referring Provider: Alicia Hdez MD D, [address] [place] [address], [address]. tel:[phone] [facility], [address] [place] [address] Dr [address] [facility] [place], [id number], [place] tel:[phone] [place] Varicose veins of right lower extremity with other complications Oct-0 4 Geovany PAL RVT, RPVI Robert. [address] [place] [address], [place] [address], [place], [id number] , [place]. tel:[phone] Referring Provider: Alicia Regalado, [address] [place] [address], [address]. tel:[phone] [facility], [address] [place] [address] Dr [address] [place], [place] [address] [place], [id number], [place] tel:[phone] [place] Varicose veins of right lower extremity with other complications Sep-2 4 Geovany PAL RVT, RPVI Robert. [address] [place] [address], [facility] [place] [place], [id number] , [place]. tel:[phone] Referring Provider: Alicia Regalado, [address] [place] [address], [address]. tel:[phone] Offic/outpt E&m Estab 5 Min Trial- Telemedicine CT & [place] [facility], [address] [place] [address] [address] [address] [address] [place], [id number], [place] tel:[phone] [place] Pruritus, unspecifiedLoc alized edemaCramp and spasmRestless legs syndromeVenous insufficiency (chronic) (peripheral)Es sential (primary) hypertension Sep-2 4 Geovany PAL RVT, RPVI Robert. [address] [place] [address], [place] [address], [place], [id number] , [place]. tel:[phone] Referring Provider: Alicia Hdez MD D, [address] [facility], [place], [address]. tel:[phone] [facility], [address] [place] [address] Dr [address] [facility] [address], [id number], [place] tel:[phone] [place] No Information 4 Geovany PAL RVT, RPVI Robert. [address] [place] [address], [place], [id number] , [place]. tel:[phone] Office/Oupt E&M New Pt 30 Mins- [place] & [place] [facility], [address] [place] [address] Dr Steele 1000[facility] [address], [id number], [place] tel:[phone] CVR - [facility] Varicose veins of bilateral lower extremities with other complicationsP ain in right lower legPain in left lower legPain in right legRestless legs syndromeEssent ial (primary) hypertensionPr uritus, unspecifiedPai n in left legCramp and spasmLocalized edema 4 Geovany PAL RVT, RPVI Robert. [address] [place] [address], [place], [id number] , [place]. tel:[phone] [facility], [address] [place] [address] Dr Steele 1000Suite [place] Leiva [place], [id number], [place] tel:[phone] [facility] Chronic venous hypertension (idiopathic) with other complications of bilateral lower extremityEdema , unspecified 4 Geovany PAL RVT, RPVI Robert. [facility], [place] [address], [place], [id number] , [place]. [phone] Referring Provider: Tj Armenta MD, RVT, RPVI, [address] [place] [address] [address] [facility], [place], [address] . tel:[phone] Family History Family Member Type Diagnosis Age At Onset No Information Payers Payer name Insurance type Covered constitution party ID Authoriza tion(s) Medicare [employer] [id number] [facility] [id number] Medical Assistance [facility] [id number] Social History Type Description Quantity Date Captured Comments Alcohol Use Details Unknown Caffeine Use Details Unknown Tobacco Use Status Current non-smoker Smoking Status Never Smoker Non-Smoking Tobacco Use Details : No Details Available : No Details Available Sex Female Vital Signs Date / Time: Height Weight BMI Pulse Rate Blood Pressure Temperature Respiratory Rate Body Surface Area Head Circumference Head Circ. Percentile Wt./[place]. Percentile BMI percentile Pulse Ox Inhaled Ox 65.770 kg (145.00 lbs) 26.5 5 kg/m eter (2) 128/86 mm[Hg] Chief Complaint And Reason For Visit No Information Reason For Referral Reason For Referral No Information Plan Of Treatment Date Type Action Status Goal Diet education completed Goal Diet education completed Goal Diet education completed Referral Ordered: Weight management: Referral to physician timeframe: 3 Months (related to Body mass index (BMI) 26.0-26.9, adult) ordered Referral Ordered: Weight management: Referral to physician timeframe: 3 Months (related to Body mass index (BMI) 26.0-26.9, adult) ordered Referral Ordered: Weight management: Referral to physician timeframe: 3 Months (related to Body mass index (BMI) 26.0-26.9, adult) ordered History Of Present Illness Encounter Date Complaint History Of Prese nt Illness No Information Functional Status Date Functional Assessmen t No Information Instructions Date Instruction Additional Infor mation Diet education Related to Body mass index (BMI) 26.0-26.9, adult Giving Encouragement to exercise Related to Body mass index (BMI) 26.0-26.9, adult Lifestyle education Related to B sixto mass index (BMI) 26.0-26.9, adult Compression stocking usage as conservative measure Related to Varicose veins of bilateral lower extremities with other complications Patient education booklet given Related to Varicose veins of bilateral lower extremities with other complications Diet education Related to Body mass index (BMI) 26.0-26.9, adult Giving Encouragement to exercise Related to Body mass index (BMI) 26.0-26.9, adult Lifestyle education Related to B sixto mass index (BMI) 26.0-26.9, adult Pre and post instruc tions reviewed and provided Related to Varicose veins of bilateral lower extremities with other complications Compression stocking usage as conservative measure Related to Varicose veins of bilateral lower extremities with other complications Pre and post instruc tions reviewed and provided Related to Localized edema Compression stocking usage as conservative measure Related to Localized edema Patient education booklet given Related to Varicose veins of bilateral lower extremities with other complications Pre and post instruc tions reviewed and provided Related to Varicose veins of bilateral lower extremities with other complications Diet education Related to Body mass index (BMI) 26.0-26.9, adult Giving Encouragement to exercise Related to Body mass index (BMI) 26.0-26.9, adult Lifestyle education Related to B sixto mass index (BMI) 26.0-26.9, adult Assessments Type Assessment Date No Information Patient Care Teams Name Effective Dates (start - stop) Status Members No Information
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
--- OUTSIDE RECORDS SUMMARY | 2025-03-10 15:21 | XMS_ITS | Patient Health Record ---
Author Organization [facility] Address [address] [place] [address] Care Team Providers Care Drilling Engineer Name Role Phone Ketty PAL, Alicia Primary Care Provider Unavailab Jose Manuel Denton Unavailable [phone] Allergies Allergen (clinical drug ingredient) Drug/Non Drug Allergy documented on EMR Reaction Allergy Type Onset Date Status citalopram Citalopram Hydrobromide heartbeat skips Drug Allergy Active gabapentin Gabapentin Unknown Drug Allergy Activ e ibuprofen Ibuprofen swelling Drug Allergy Active shrimp allergenic extract Shrimp (Diagnostic) Unknown Drug Allergy Active aspirin Aspirin Unknown Drug Allergy Active buspirone Buspirone Unknown Drug Allergy Active cortisone Cortisone Unknown Drug Allergy Active doxycycline Doxycycline Unknown Drug Allergy Act toyb morphine Morphine Unknown Drug Allergy Active Penicillin Unknown Drug Allergy Active Shellfish (FN) Shellfish-derived Products Unknown Drug Allergy Active Substance with sulfonamide structure and antibacterial mechanism of action (substance) Sulfa Antibiotics Unknown Drug Allergy Active tetracycline Tetracycline Unknown Drug Allergy A ctive tizanidine Tizanidine Unknown Drug Allergy Activ e Reason For Referral No Information Medications Medication SIG (Take, Route, Frequency, Duration) Notes Start Date End Date Status Atenolol 25 MG 1 tablet Orally Once a day for 30 day(s) Active Clopidogrel Bisulfate 75 MG 1 tablet Orally Not-Taking Albuterol Active eliquis 5 mg Not-Suresh ing Rosuvastatin Calcium 40 MG 1 tablet Oral ly Once a day Not-Taking hydroCHLOROthiazide 25 MG 1 tablet in th e morning Orally Once a day Not-Taking hydroCHLOROthiazide 25 MG 1 tablet Orall y Once a day Active eliquis 5 mg Active Clopidogrel Bisulfate 75 MG 1 tablet Ora lly Once a day for 30 day(s) Active amLODIPine Besylate Not-Taking Cetirizine HCl 10 MG 1 tablet Orally Onc e a day for 30 day(s) Active Simvastatin 40 MG 1 tablet every evening Orally Once a day for 30 day(s) Not-Taking Lisinopril 30 MG 1 tablet Orally Once a day Not-Taking Montelukast Sodium N ot-Taking valACYclovir HCl Not -Taking oxyCODONE HCl 5 MG 1 tablet as needed Orally every 6 hrs Not-Taking Sertraline HCl 50 MG 1 tablet Orally Onc e a day Active valACYclovir HCl 1 GM 1 tablet Orally On ce a day for 10 day(s) Active Rosuvastatin Calcium 40 MG 1 tablet Oral ly Once a day for 30 day(s) Active oxyCODONE HCl 5 MG 1 tablet as needed Orally every 6 hrs PRN Active Sertraline HCl Not-T aking Albuterol Not-Taking Ammonium Lactate 12 % 1 application Externally Twice a day for 30 days Active Loratadine Not-Takin g Multivitamins Active Citalopram Hydrobromide 20 MG 1 tablet Orally Once a day Not-Taking Montelukast Sodium 10 MG 1 tablet Orally Once a day for 30 day(s) Active Endocet 5-325 MG 1 tablet as needed Orally every 4 hours Not-Taking Lisinopril 30 MG 1 tablet Orally Once a day for 30 day(s) Active CeleXA 10 MG Orally Not-Suresh ing Compression Stockings 20-30mm Hg 1 pair wear daily for 30 days Active Walking Boot/Pneumatic As directed Wear Daily for Until further notice 01/17/2017 Not-Taking Social History Tobacco Use: Social History Observation Description Date Details (start date - stop date) Never Smoker NA - NA Tobacco use other than smoking: Question Answer Notes Are you an other tobacco user? No Tobacco Control (Standard) Question Answer Notes Tobacco use: Nonsmoker Additional Findings: Tobacco non-user Current no nsmoker AUDIT-C (Standard) Question Answer Notes Did you have a drink containing alcohol in the p ast year? No Points 0 Interpretation Negative Problems Problem Type SNOMED Code ICD Code Onset Dates Problem Status W/U Status Risk Notes Problem Atherosclerosis of one[place] arteries of the extremities ([id number]) Atherosclerosis of oneida artery of both lower extremities, with unspecified presence of clinical manifestation (I70.203) Active confirmed Q7(A), Q8(2B), Q9(1B,2 C) Vital Signs Blood pressure diastolic 80 mm Hg 01/21/2025 Height 5ft 2in in 01/21/2025 Blood pressure systolic 120 mm Hg 01/21/2025 Weight 145 lbs 01/21/2025 BMI 26.52 kg/m2 01/21/2025 Procedures Procedure Date Ordered Date Performed Result Body Sit e 08044-RKCRIWV NAIL, 6 OR MORE 05/14/2024 N/A 81224-Mtlo Destruction, 1-14 05/14/2024 N/A 30226-Fpafomti Plate 05/14/2024 N/A 69866-QLGW SKIN LESIONS, OVER 4 05/14/2024 N/A 95478-LYALILN NAIL, 6 OR MORE 10/15/2024 N/A 31065-CRMZ SKIN LESIONS, OVER 4 10/15/2024 N/A 65047-EYEWYQF NAIL, 6 OR MORE 01/21/2025 N/A 30710-NQUA SKIN LESIONS, OVER 4 01/21/2025 N/A Encounters Encounter Location Date Provider Diagnosis [address] [address] 05/14/2024 Jose Manuel Oliveira Atherosclerosis of oneida artery of both lower extremities, with unspecified presence of clinical manifestation I70.203 ; Plantar wart B07.0 ; Right foot pain M79.671 ; Tinea unguium B35.1 ; Pain in right toe(s) M79.674 ; Pain in left toe(s) M79.675 ; Xerosis of skin L85.3 and Ingrown nail L60.[address] [address] 10/15/2024 Jose Manuel Oliveira Atherosclerosis of oneida artery of both lower extremities, with unspecified presence of clinical manifestation I70.203 ; Tinea unguium B35.1 ; Pain in right toe(s) M79.674 ; Pain in left toe(s) M79.675 and Xerosis of skin L85.[address] [address] 01/21/2025 Jose Manuel Oliveira Atherosclerosis of oneida artery of both lower extremities, with unspecified presence of clinical manifestation I70.203 ; Tinea unguium B35.1 ; Pain in right toe(s) M79.674 ; Pain in left toe(s) M79.675 and Edema, lower extremity R60.0 [facility] [address] [address] 04/22/2024 Jose Manuel Oliveira [facility] [address] [address] 07/21/2024 Jose Manuel Roxanne [facility] [address] [place] [phone] 07[facility]29/20[facility] [address] [place] [phone] 01/21[facility]2025 [facility] [address] [place] [phone] 02/04/2025 [facility] [address] [address] 02/06/2025 Jose Manuel Oliveira Assessments Encounter Date Diagnosis (ICD Code) Assessment Notes Treatment Notes Treatment Clinical Notes Section Notes 05/14/2024 Plantar wart (ICD-10 - B07.0) 05/14/2024 Atherosclerosis of oneida artery of both lower extremities, with unspecified presence of clinical manifestation (ICD-10 - I70.203) 10/15/2024 Tinea unguium (ICD-10 - B35.1) 10/15/2024 Atherosclerosis of oneida artery of both lower extremities, with unspecified presence of clinical manifestation (ICD-10 - I70.203) 01/21/2025 Tinea unguium (ICD-10 - B35.1) 01/21/2025 Atherosclerosis of oneida artery of both lower extremities, with unspecified presence of clinical manifestation (ICD-10 - I70.203) Q7(A), Q8(2B), Q9(1B,2C) 10/15/2024 Pain in right toe(s) (ICD-10 - M79.674) 01/21/2025 Pain in right toe(s) (ICD-10 - M79.674) 05/14/2024 Right foot pain (ICD-10 - M79.671) 05/14/2024 Tinea unguium (ICD-10 - B35.1) 10/15/2024 Pain in left toe(s) (ICD-10 - M79.675) 01/21/2025 Pain in left toe(s) (ICD-10 - M79.675) 01/21/2025 Edema, lower extremity (ICD-10 - R60.0) 10/15/2024 Xerosis of skin (ICD-10 - L85.3) 05/14/2024 Pain in right toe(s) (ICD-10 - M79.674) 05/14/2024 Pain in left toe(s) (ICD-10 - M79.675) 05/14/2024 Xerosis of skin (ICD-10 - L85.3) 05/14/2024 Ingrown nail (ICD-10 - L60.0) Plan Of Treatment Pending Test Test Name Order Date 38807-XAMAAGC NAIL, 6 OR MORE 01/17/2017 08438-SGUITFV NAIL, 6 OR MORE 02/01/2017 16018-IDTIRUL NAIL, 6 OR MORE 04/15/2012 07402-VQFWRIP NAIL, 6 OR MORE 02/16/2014 32543-CXYPXIJ NAIL, 6 OR MORE 02/11/2024 49610-EQJKTTY NAIL, 6 OR MORE 05/14/2024 48558-NMCCZUA NAIL, 6 OR MORE 10/15/2024 81438-LITQZTM NAIL, 6 OR MORE 01/21/2025 00405-Ejmv Destruction, 1-14 05/14/2024 72680-Ixhz Destruction, 1-14 02/11/2024 28484-Iljv Destruction, 1-14 11/05/2023 45319-Vuqooeex Plate 05/14/2024 09429- Debride <25 sq cm 02/16/2014 34483-RUQM SKIN LESIONS, OVER 4 02/11/20 24 95902-RTEL SKIN LESIONS, OVER 4 11/05/19 24 31245-ETHT SKIN LESIONS, OVER 4 05/14/20 24 99670-ZYUK SKIN LESIONS, OVER 4 01/22/20 25 30727-CNEJ SKIN LESIONS, OVER 4 10/15/20 24 Next Appt Details Provider Name:Jose Manuel Oliveira , 04/13/2025 02:45:00 PM, [address] [facility], [address], [place], [address], Insurance Providers Payer Name Payer Address Payer Phone Subscriber Number Group Number Insured Name Patient Relationship to Insured Coverage Start Date Coverage End Date Medicare National [facility] [address] [place] [phone] [id number] Giselle Shrestha Self - patient is the insured [facility] [address] [place] [address] [id number] Giselle Shrestha Self - patient is the insured Medical (General) History Medical History History ICD Code anxiety Arthritis back, hip, knee pain chicken pox hypercholesterolemia measles mumps asthma Depression Diverticulosis Heart disease - heart will stop briefly occasionally Hypertension Osteoporosis chronic sinusitis Joint implants/screws Surgical History Surgery Date(Month/Year) gall bladder 11/2011 breast augmentation 2001 eye surgery 07/2023 heart surgery unspecified 2022 Stent insertion (Heart) 2023 back surgery 02/2024 legs, vein surgery eye surgery Hospitalization History Reason Date(Month/Year) [facility] 2017
--- OUTSIDE RECORDS SUMMARY | 2025-03-10 15:21 | XMS_ITS ---
[facility] Organization [facility] Address [address] [place] [address] Care Team Providers Care Receptionist Name Role Phone Ketty PAL, Alicia Primary Care Provider Unavailab Jose Manuel Denton Unavailable [phone] Allergies Allergen (clinical drug ingredient) Drug/Non Drug [...] Active doxycycline Doxycycline Unknown Drug Allergy Act toby morphine Morphine Unknown Drug Allergy Active Penicillin Unknown Drug Allergy Active Shellfish (FN) Shellfish-derived Products Unknown Drug Allergy Active Substance with sulfonamide structure and antibacterial mechanism of action (substance) Sulfa Antibiotics Unknown Drug Allergy Active tetracycline Tetracycline Unknown Drug Allergy A ctive tizanidine Tizanidine Unknown Drug Allergy Activ e REASON FOR VISIT At Risk Footcare, Painful Nail(s) aggravated by shoes and causing difficulty standing/walking., Swelling Medications Medication SIG (Take, Route, Frequency, Duration) Notes Start Date End Date Status Albuterol Active Citalopram Hydrobromide 20 MG 1 tablet Orally Once a day Not-Taking Endocet 5-325 MG 1 tablet as needed Orally every 4 hours Not-Taking CeleXA 10 MG Orally Not-Suresh ing Walking Boot/Pneumatic As directed Wear Daily for Until further notice 01/17/2017 Not-Taking Clopidogrel Bisulfate 75 MG 1 tablet Orally Not-Taking eliquis 5 mg Not-Suresh ing amLODIPine Besylate Not-Taking Simvastatin 40 MG 1 tablet every evening Orally Once a day for 30 day(s) Not-Taking Loratadine Not-Takin g Rosuvastatin Calcium 40 MG 1 tablet Oral ly Once a day Not-Taking hydroCHLOROthiazide 25 MG 1 tablet in th e morning Orally Once a day Not-Taking Lisinopril 30 MG 1 tablet Orally Once a day Not-Taking Montelukast Sodium N ot-Taking valACYclovir HCl Not -Taking Sertraline HCl 50 MG 1 tablet Orally Onc e a day Active Sertraline HCl Not-T aking Albuterol Not-Taking Ammonium Lactate 12 % 1 application Externally Twice a day for 30 days Active oxyCODONE HCl 5 MG 1 tablet as needed Orally every 6 hrs Not-Taking valACYclovir HCl 1 GM 1 tablet Orally On ce a day for 10 day(s) Active Rosuvastatin Calcium 40 MG 1 tablet Oral ly Once a day for 30 day(s) Active oxyCODONE HCl 5 MG 1 tablet as needed Orally every 6 hrs PRN Active Multivitamins Active Montelukast Sodium 10 MG 1 tablet Orally Once a day for 30 day(s) Active hydroCHLOROthiazide 25 MG 1 tablet Orall y Once a day Active eliquis 5 mg Active Clopidogrel Bisulfate 75 MG 1 tablet Ora lly Once a day for 30 day(s) Active Cetirizine HCl 10 MG 1 tablet Orally Onc e a day for 30 day(s) Active Lisinopril 30 MG 1 tablet Orally Once a day for 30 day(s) Active Atenolol 25 MG 1 tablet Orally Once a day for 30 day(s) Active Compression Stockings 20-30mm Hg 1 pair wear daily for 30 days Active Social History Tobacco Use: Social History Observation [...] ast year? No Points 0 Interpretation Negative Vital Signs Height 5ft 2in in 01/21/2025 Weight 145 lbs 01/21/2025 BMI 26.52 kg/m2 01/21/2025 Blood pressure systolic 120 mm Hg 01/22/20 25 Blood pressure diastolic 80 mm Hg 025 Procedures Procedure Date Ordered Date Performed Result Body Sit e 86396-[id number] NAIL, 6 OR MORE 01/21/2025 N/A 05807-LNYI SKIN LESIONS, OVER 4 01/21/2025 N/A Encounters Encounter Location Date Provider Diagnosis [facility] [place] [address] [place] [id number] 01/21/2025 Jose Manuel Oliveira Atherosclerosis of [place] artery of both lower extremities, with unspecified presence of clinical manifestation I70.203 ; Tinea unguium B35.1 ; Pain in right toe(s) M79.674 ; Pain in left toe(s) M79.675 and Edema, lower extremity R60.0 Assessments Encounter Date Diagnosis (ICD Code) Assessment Notes Treatment Notes Treatment Clinical Notes Section Notes 01/21/2025 Atherosclerosis of [place] artery of both lower extremities, with unspecified presence of clinical manifestation (ICD-10 - I70.203) Q7(A), Q8(2B), Q9(1B,2C) 01/21/2025 Tinea unguium (ICD-10 - B35.1) 01/21/2025 Pain in right toe(s) (ICD-10 - M79.674) 01/21/2025 Pain in left toe(s) (ICD-10 - M79.675) 01/21/2025 Edema, lower extremity (ICD-10 - R60.0) Plan Of Treatment Medication Medication Name Sig Start Date Stop Date Notes Compression Stockings 20-30mm Hg 1 pair wear daily for 30 days Pending Test Test Name Order Date [id number] NAIL, 6 OR MORE 01/21/2025 10593-GURD SKIN LESIONS, OVER 4 01/22/20 25 Next Appt Details Follow Up: prn, Reason: Provider Name:Jose Manuel Oliveira , 04/13/2025 02:45:00 PM, [address] [facility], [place] [address], [place], [phone], Procedure Notes * Category Sub-Category Detail Notes Debride Nail 6-10 Nail debridement Due to the cl inical pathology outlined in the exam findings, performance of this nail treatment is medically necessary as its management by an unskilled/untrained nonprofessional would put this patients foot and overall health at risk. Therefore, debridement to affected nail(s), as described in exam ( TA, T1, T4, T5, T6, T8, T9 ), was performed exclusively by the physician of record to reduce/remove overall nail length, girth, thickness, subungual debris, and necrotic tissue, by manual and/or electrical means through the use of a nail nipper and/or dremel-type sand mill grinder, to a more viable healthy nail plate or bed tissue 6-10 nails in total. Silver nitrate was used for any petechial bleeding as necessary. Definitive antifungal treatment options, both pharmaceutical and surgical, have been reviewed and discussed with the patient. The patient solely prefers the use of intermittent/as needed professional debridement services for their nail condition and understands the need for additional periodic treatments to maintain effectiveness in symptomatic relief - 61338 Keratoma Treatment Parring or Cutting o f Benign Hyperkeratotic Lesion(s) (-57) More than 4 Lesions - Due to the at risk nature of the patients medical condition as documented in the exam findings, performance of this keratoderma treatment is medically necessary as its management by an unskilled/untrained nonprofessional would put this patients foot and overall health at risk. Therefore, the benign hyperkeratotic lesions, (12) in total, locations as stated and described in the exam ( Medial plantar , IPJ , TA , Medial plantar , IPJ , T5 , SUB MTH (s) , 1 , B/L , SUB MTH (s) , 2 , B/L , SUB MTH (s) , 3 , B/L , SUB MTH (s) , 5 , B/L, Plantar Heel(s), B/L ), were pared, and/or cut utilizing a sterile 15 blade, tissue nippers, and/or power dremel instrumentation by the physician of record - 60853, Q8 Progress Notes * Giselle SHRESTHA DDOB: [birth year] (79 yo F)Acc No.[id number]:01/21/2025 Progress Note Patient:?Giselle SHRESTHA Provider:?Jose Manuel Oliveira DPM :1945???Age:79 Y???Sex:Female D ate:01/21/2025 Address:[address] [place] [address] [id number] Pcp:Alicia Hdez MD Subjective: * Chief Complaints: * ???At Risk FootcarePainful N ail(s) aggravated by shoes and causing difficulty standing/walking.Swelling * HPI: ???At Risk footcare:?Pt States Last PCP Visit:?Date?11/24/2024 ???Swelling:?Location:?Both feet/leg.?Duration:?several weeks.?Course:?worse.?Treatment:?elevation.? * ROS:?General/Constitutional:?Nausea?denies.?Vomiting?denies.?Hunger Thirst?denies.?Loss appetite?denies.?Chills?denies.?Fatigue?denies.?Fever?denies.?Night Sweats?denies.?Unexplained weight loss?denies.?Unexplained weight gain?denies.?HEENTM:?Dentures?denies.?Dizziness?denies.?Glasses/contacts?denies.?Retinopathy?de nies.?Blurred/double vision?denies.?TMJ?denies.?Discharge/drainage?denies.?Implants?denies.?Sore throat?denies.?Dental implants?denies.?Hard of hearing ?denies.?Difficulty chewing/swallowing/speaking?denies.?Nose bleeds?denies.?Sore mouth?denies.?Respiratory:?On Oxygen?denies.?Pneumonia/pleurisy?denies.?Bronchitis?denies.?Emphysema?denies.?C oughing?denies.?Cough blood?denies.?Shortness of breath?denies.?Wheezing?denies.?Cardiovascular:?Pacemaker?denies.?MVP?denies.?WPW?denies.?CHF?denies.?Heart attack?denies.?Septal defect?denies.?Rapid beat?denies.?Chest pain ?denies.?Atrial Fib.?denies.?Murmur/Palpitations?denies.?Gastrointestinal:?Hemorrhoids?denies.?Stomach/Abdominal pain?denies.?Dark blood stool?denies.?Irritable bowel ?denies.?Constipation?denies.?Diarrhea?denies.?Hematology:?Swelling?denies.?Clots?denies.?Varicose Veins?denies.?Bruising?, admits, on anticoagulants.?Bleeding problem?, admits, on anticoagulants.?Genitourinary:?Blood urine?denies.?Frequent/Painfu/urination/bladder control?denies.?Kidney stones?denies.?Infection (UTI)?denies.?Nephropathy?denies.?sex trans dis (STD)?denies.?Prostate?denies.?Musculoskeletal:?Hammertoes?denies.?Bunions?admits.?Back Pain??admits, recent back surgery.?Muscle Cramps/ Resting?denies.?Muscle cramps / walking?denies.?Generalized aches and pains?denies.?Weakness?denies.?Integ.:?Ruth?denies.?Scars?denies.?Corns/calluses?admits.?Ingrown nails?admits.?Painful nails?admits.?Open Sores?denies.?Rashes?denies.?Neurologic:?Difficulty sleeping?denies.?Brain disorder?denies.?Numbness?denies.?Balance trouble?denies.?Confusion?denies.?Fainting/blackouts?denies.?Tingling?denies.?Tr emors?denies.? * Medical History:? * Surgical History:?gall bladd er reast augmentation 2002eye surgery 07/2023heart surgery unspecified 2022Stent insertion (Heart) ack surgery 02/2024legs, vein surgery eye surgery * Hospitalization/Major Diagno stic Procedure:?[facility] 2017 * Family History:?Mother: dece ased, poor circulation, foot problems, diagnosed with Other malignant neoplasm of unspecified site, Diabetic - NIDDM, Unspecified essential hypertension, Unspecified heart disease, Family history of arthritis.?Father: , foot problems, diagnosed with Diabetic - NIDDM, Unspecified essential hypertension.?Children: two.? * Social History:?Tobacco Use:?Tobacco use other than smoking?Are you an other tobacco user??No ?Tobacco Control (Standard)?Tobacco use:?Nonsmoker ?Additional Findings: Tobacco non-user?Current nonsmoker ???Drugs/Alcohol:?Drugs?Have you used drugs other than those for medical reasons in the past 12 months??No ???Miscellaneous:?Caffeine: no. ?Children: yes. ?Exercise: yes, walking, sit ups. ?Marital status: single. ?Occupation: Retired. ???Drug/Alcohol:?AUDIT-C (Standard)?Did you have a drink containing alcohol in the past year??No ?Points?0 ?Interpretation?Negative * Medications:?TakingAlbuterol Atenolol 25 MG Tablet 1 tablet Orally Once a day Cetirizine HCl 10 MG Tablet 1 tablet Orally Once a day Clopidogrel Bisulfate 75 MG Tablet 1 tablet Orally Once a day eliquis 5 mg Tablet hydroCHLOROthiazide 25 MG Tablet 1 tablet Orally Once a day Lisinopril 30 MG Tablet 1 tablet Orally Once a day Montelukast Sodium 10 MG Tablet 1 tablet Orally Once a day Multivitamins oxyCODONE HCl 5 MG Tablet 1 tablet as needed Orally every 6 hrs , Notes to Pharmacist: PRNRosuvastatin Calcium 40 MG Tablet 1 tablet Orally Once a day valACYclovir HCl 1 GM Tablet 1 tablet Orally Once a day Sertraline HCl 50 MG Tablet 1 tablet Orally Once a day Ammonium Lactate 12 % Cream 1 application Externally Twice a day Taking Albuterol Taking Atenolol 25 MG Tablet 1 tablet Orally Once a day Taking Cetirizine HCl 10 MG Tablet 1 tablet Orally Once a day Taking Clopidogrel Bisulfate 75 MG Tablet 1 tablet Orally Once a day Taking eliquis 5 mg Tablet Taking hydroCHLOROthiazide 25 MG Tablet 1 tablet Orally Once a day Taking Lisinopril 30 MG Tablet 1 tablet Orally Once a day Taking Montelukast Sodium 10 MG Tablet 1 tablet Orally Once a day Taking Multivitamins Taking oxyCODONE HCl 5 MG Tablet 1 tablet as needed Orally every 6 hrs , Notes to Pharmacist: PRNTaking Rosuvastatin Calcium 40 MG Tablet 1 tablet Orally Once a day Taking valACYclovir HCl 1 GM Tablet 1 tablet Orally Once a day Taking Sertraline HCl 50 MG Tablet 1 tablet Orally Once a day Taking Ammonium Lactate 12 % Cream 1 application Externally Twice a day Not-Taking/PRNAlbuterol Sertraline HCl oxyCODONE HCl 5 MG Tablet 1 tablet as needed Orally every 6 hrs valACYclovir HCl Montelukast Sodium Lisinopril 30 MG Tablet 1 tablet Orally Once a day hydroCHLOROthiazide 25 MG Tablet 1 tablet in the morning Orally Once a day Rosuvastatin Calcium 40 MG Tablet 1 tablet Orally Once a day eliquis 5 mg Tablet Clopidogrel Bisulfate 75 MG Tablet 1 tablet Orally Simvastatin 40 MG Tablet 1 tablet every evening Orally Once a day amLODIPine Besylate Loratadine Walking Boot/Pneumatic As directed Wear Daily CeleXA 10 MG Tablet Orally Endocet 5-325 MG Tablet 1 tablet as needed Orally every 4 hours Citalopram Hydrobromide 20 MG Tablet 1 tablet Orally Once a day Medication List reviewed and reconciled with the patientNot-Taking/PRN Albuterol Not-Taking/PRN Sertraline HCl Not-Taking/PRN oxyCODONE HCl 5 MG Tablet 1 tablet as needed Orally every 6 hrs Not-Taking/PRN valACYclovir HCl Not- Taking/PRN Montelukast Sodium Not-Taking/PRN Lisinopril 30 MG Tablet 1 tablet Orally Once a day Not-Taking/PRN hydroCHLOROthiazide 25 MG Tablet 1 tablet in the morning Orally Once a day Not-Taking/PRN Rosuvastatin Calcium 40 MG Tablet 1 tablet Orally Once a day Not-Taking/PRN eliquis 5 mg Tablet Not-Taking/PRN Clopidogrel Bisulfate 75 MG Tablet 1 tablet Orally Not-Taking/PRN Simvastatin 40 MG Tablet 1 tablet every evening Orally Once a day Not-Taking/PRN amLODIPine Besylate Not-Taking/PRN Loratadine Not-Taking/PRN Walking Boot/Pneumatic As directed Wear Daily Not-Taking/PRN CeleXA 10 MG Tablet Orally Not-Taking/PRN Endocet 5-325 MG Tablet 1 tablet as needed Orally every 4 hours Not-Taking/PRN Citalopram Hydrobromide 20 MG Tablet 1 tablet Orally Once a day Medication List reviewed and reconciled with the patient * Allergies:?Ibuprofen: swelli ngCitalopram Hydrobromide: heartbeat skipsPenicillinSulfa AntibioticsShrimp (Diagnostic)Shellfish-derived ProductsCortisoneAspirinTetracyclineMorphineDoxycyclineBuspironeTizanidineGabape ntinyes[Allergies Verified] Objective: * Vitals:?Ht: 5ft 2in, Wt: 145 , BMI: 26.52, Shoe size: 7, BP: 120/80 mm Hg, Ht-cm: 157.48 cm, Wt-k.77 kg. * Examination: ???Vascular: ?DP PULSES (B):? 0/4, B/L.?PT PULSES (B):? 0/4, B/L.?CAPILLARY FILL TIME:? delayed, all digits, B/L.?TROPHIC CONDITION-TEXTURE/ELASTICITY/TURGOR/HAIR GROWTH (B):? decreased,?with sparse to absent hair growth, B/L.?TEMPERTURE GRADIENT (C):? decreased, cool to cool, proximal to distal, B/L.?PIGMENTATION:?rubrous, B/L.?EDEMA (C):?absent, B/L.?CLAUDICATION (C):?denies, B/L.?REST PAIN:?denies, B/L.?JOSE'S SIGN:?absent, B/L.?PALPABLE CORDS:?absent, B/L.?Nails: ?NAILS are:?Elongated, overgrown, dystrophic, lytic, greater than 3mm thick, discolored and friable with crumbly malodorous subungual debris, with pain on palpation, TA, T1, T4, T5, T6, T8, T9, all other nails not described with characteristics as possessing mycosis are elongated, overgrown, and dystrophic.?Dermatologic: ?SKIN FINDINGS:?Skin exam reveals Keratotic lesion(s) located at , Medial plantar , IPJ , TA , Medial plantar , IPJ , T5 , SUB MTH (s) , 1 , B/L , SUB MTH (s) , 2 , B/L , SUB MTH (s) , 3 , B/L , SUB MTH (s) , 5 , B/L, Plantar Heel(s), B/L.? Assessment: * Assessment: 1.?Tinea unguium - B35.1???2 .?Atherosclerosis of [place] artery of both lower extremities, with unspecified presence of clinical manifestation - I70.203 (Primary)???Specify :Q8???Notes :Q7(A), Q8(2B), Q9(1B,2C)???3.?Pain in right toe(s) - M79.674???4.?Pain in left toe(s) - M79.675???5.?Edema, lower extremity - R60.0???Specify :Acute problem, Uncomplicated (3), Rx Management (4)??? Plan: * Treatment: 2.?Tinea unguium?Procedure: 52289-ABNPHAV NAIL, 6 OR MORE 3.?Edema, lower extremity? Start Compression Stockings closed toe- knee high, 20-30mm Hg, 1 pair, wear, daily, 30 days, 2, Refills 2.?? * Procedures:?Debride Nail 6-10:?Nail debridement?Due to the clinical pathology outlined in the exam findings, performance of this nail treatment is medically necessary as its management by an unskilled/untrained nonprofessional would put this patients foot and overall health at risk. Therefore, debridement to affected nail(s), as described in exam (?TA,?T1,?T4,?T5,?T6,?T8,?T9?), was performed exclusively by the physician of record to reduce/remove overall nail length, girth, thickness, subungual debris, and necrotic tissue, by manual and/or electrical means through the use of a nail nipper and/or dremel-type sand mill grinder, to a more viable healthy nail plate or bed tissue 6- 10 nails in total. Silver nitrate was used for any petechial bleeding as necessary. Definitive antifungal treatment options, both pharmaceutical and surgical, have been reviewed and discussed with the patient. The patient solely prefers the use of intermittent/as needed professional debridement services for their nail condition and understands the need for additional periodic treatments to maintain effectiveness in symptomatic relief - 90147.?Keratoma Treatment:?Parring or Cutting of Benign Hyperkeratotic Lesion(s)?(-57) More than 4 Lesions - Due to the at risk nature of the patients medical condition as documented in the exam findings, performance of this keratoderma treatment is medically necessary as its management by an unskilled/untrained nonprofessional would put this patients foot and overall health at risk. Therefore, the benign hyperkeratotic lesions, (12) in total, locations as stated and described in the exam (?Medial plantar?,?IPJ?,?TA?,?Medial plantar?,?IPJ?,?T5?,?SUB MTH (s)?,?1?,?B/L?,?SUB MTH (s)?,?2?,?B/L?,?SUB MTH (s)?,?3?,?B/L?,?SUB MTH (s)?,?5?,?B/L,?Plantar Heel(s),?B/L?), were pared, and/or cut utilizing a sterile 15 blade, tissue nippers, and/or power dremel instrumentation by the physician of record - 34356, Q8.? * Procedure Codes:?15964 DEBRI DE NAIL, 6 OR MORE, Modifiers: XS 83059 TRIM SKIN LESIONS, OVER 4, Modifiers: XS , Q8 * Preventive Medicine:? ??Counseling:?Discussion:?-13: Office or other outpatient visit for the evaluation and management of an established patient, which required a medically appropriate history and/or examination and LOW level of DECISION MAKING for: 1 STABLE ACUTE UNCOMPLICATED PROBLEM, 2 OR MORE MINOR PROBLEMS, OR 1 STABLE CHRONIC PROBLEM, THAT POSE(S) A LOW RISK FOR MORBIDITY/MORTALITY. The visit on the day of the encounter encompassed interpreting the data and educating the patient as to the nature of their condition, treatment options available according to their individual PMH, meds, allergies, and overall health/living conditions, as well as any potential risks or complications that may occur from a failure to adhere to, and participate in, the recommended course of therapy. The discussion included a complete verbal, and/or written explanation of the examination results, any x-rays taken, the proposed diagnosis, and outline of the treatment plan. A schedule for future care needs was also explained. The patient verbalized an understanding of the instructions at this time and agreed to be an active participant in their treatment. If the patient should think of any questions or concerns after the visit, I have encouraged the patient to call the office.?Edema:?I explained to the patient the possible etiologies for Edema, including genetic, surgery, infection, medications, heart disease, kidney disease, excess dietary salt, and various cancer treatments. We discussed the risks/benefits of the treatment options available including rest, elevation, OTC compression stockings, Rx compression stockings, Unna Boot application, diet modification to limit salt intake, and Rx segmental compression boots provided the absence of CHD in the patients medical history. The advantages and disadvantages of each option were discussed and the patients questions re: risk of infection(cellulitis), medications, diet, and the daily use of compression stockings(not to be worn at night), and consistency in these home treatment regimens for optimal success were answered to their verbally confirmed satisfaction. Given the risk for vessel clotting disease, the patient was instructed to go immediately to the ER of hospital should they experience any calf pain, SOB, or discomfort. Any changes to the patients medication regimen will be performed by the PCP or patients kidney/heart/cancer specialist. The patient has elected to receive compression stockings. Such were Rxed today with instructions for use.? ??Screening/Special Tests:?Fall Risk?Screening:?No falls in the past year ?FALLS: Screening for Future Fall Risk?Have you had any falls with injury in the past year??No * Follow Up:?prn * Images: * Sign off status: Completed true * Provider:?Jose Manuel Oliveira DPM Date:?2024 Generated for Wai kaur/Elvia/Jean on:?03/10/2025 03:20 PM EDT History and Physical Notes * HPI (History of Present Illness) Category Sub-Category Detail Notes Category Not es At Risk footcare Pt States Last PCP Visit: Date: 5 Swelling Location: Both feet/leg Duration: several weeks Course: worse Treatment: elevation Examination Category Sub-Category Detail Notes Category Not es Dermatologic SKIN FINDINGS: Skin exam reveal s Keratotic lesion(s) located at , Medial plantar , IPJ , TA , Medial plantar , IPJ , T5 , SUB MTH (s) , 1 , B/L , SUB MTH (s) , 2 , B/L , SUB MTH (s) , 3 , B/L , SUB MTH (s) , 5 , B/L, Plantar Heel(s), B/L Vascular DP PULSES (B): 0/4, B/L PT PULSES (B): 0/4, B/L CAPILLARY FILL TIME: delayed, all digits , B/L TEMPERTURE GRADIENT (C): decreased, cool to cool, proximal to distal, B/L TROPHIC CONDITION-TEXTURE/ELASTICITY/TURGOR/HAIR GROWTH (B): decreased, with sparse to absent hair gr owth, B/L EDEMA (C): absent, B/L CLAUDICATION (C): denies, B/L REST PAIN: denies, B/L JOSE'S SIGN: absent, B/L PALPABLE CORDS: absent, B/L PIGMENTATION: rubrous, B/L Nails NAILS are: Elongated, overg rown, dystrophic, lytic, greater than 3mm thick, discolored and friable with crumbly malodorous subungual debris, with pain on palpation, TA, T1, T4, T5, T6, T8, T9, all other nails not described with characteristics as possessing mycosis are elongated, overgrown, and dystrophic
--- OUTSIDE RECORDS SUMMARY | 2025-03-10 15:21 | XMS_ITS | Encounter Summary ---
Author Organization [employer] Address [address] [place] [address] Care Team Providers Care Director Federal Name Role Phone Alicia Hdez MD Primary Care Provider [phone] Encounter Details Date Type Department Care Team (Late st Contact Info) Description 03/28/2024 Orders Only [facility] MED[facility] [address] [place] [address] Alicia Hdez MD [address] [place] [address] Lumbosacral radiculopathy; Bradycardia; Coronary artery disease involving [place] coronary artery of [place] heart without angina pectoris; Left hip pain; Sciatica of left side Social History Tobacco Use Types Packs/Day Years [...] Description 06/11/2025 11:30 AM EDT Office Visit [facility] [address] [place] [address] Alicia Hdez MD [address] [place] [address] documented as of this encounter Procedures Procedure Name Priority Date/Time Associated Diagnosis Comments AMB REFERRAL TO PHYSICAL MEDICINE REHAB/PHYSIATRY Routine 12/12/2023 Left hip pain Sciatica of left side documented in this encounter Results * Referral to Physical Medicine Rehab (12/12/2023) Alicia Hdez MD OUTPATIENT REFERRAL ORDERABLES F inal Result documented in this encounter Visit Diagnoses Diagnosis Lumbosacral radiculopathy Thoracic or lumbosacral neuritis or radiculitis, unspecified Bradycardia Other specified cardiac dysrhythmias Coronary artery disease involving [place] coronary artery of [place] heart without angina pectoris Left hip pain Pain in joint, pelvic region and thigh Sciatica of left side documented in this encounter Care Teams Director Federal Relationship Specialty Start Date End Date Alicia Hdez MD [address] [place] [address] PCP - General Internal Medicine 10/25/22January Elsa Registered Nurse Case Management 08/08/23 documented as of this encounter
--- OUTSIDE RECORDS SUMMARY | 2025-03-10 15:21 | XMS_ITS | Data Portability ---
Author Organization [place] - [facility], [facility] Address [address] [place] [address] Care Team Providers Care Survey Associate Name Role Phone ELLE HUTCHISON Primary Care Provider [phone] Assessment Encounter Date Assessment Date Assessment LastModified by Organization Details LastModified Time 01/20/2025 01/20/2025 I am seeing the patient today under the supervision of Dr. Clark who was available but who did not see the patient. HPI: Patient presents today complaining of left hip pain. She has been dealing with difficulty about the hip since she had varicose vein surgery. She feels as if she had an onset of groin pain after this. She has been evaluated by them via ultrasound and was assured that there were no complications from the procedure. She has been dealing with lower extremity edema. She has difficulty with weightbearing for prolonged periods of time and feels her pain in the anterior groin. She also has difficulty with range of motion. Past family, medical, social history and review of systems has been reviewed, updated and is located in the patient's chart. The patient is well appearing and in no apparent distress. Alert and oriented x3. Gait is antalgic favoring the left side. Examination: Left hip: Visual inspection reveals no swelling, ecchymosis or erythema about the hip. No tenderness to palpation about the hip. Hip range of motion slightly limited with mild irritability during internal rotation and flexion. Strength 4/5. + SHERI. + FADDIR. Negative scouring test. Negative Stinchfield. Neurovascular intact. Calf soft and nontender. An MRI was available for my independent review today at [facility] AP and lateral of the left hip reveal joint space diffuse chondral thinning slight osteophyte formation and subchondral sclerosis. No evidence of AVN, acute fracture or dislocation. Impression: Osteoarthritis, left hip Plan: I explained the nature of the diagnosis with the patient and its treatment options both conservative and surgical. Conservative measures were discussed at length including but not limited to physical therapy, bracing, anti-inflammatorie s and injection therapies. Patient would like to try an injection into the hip. Please see the procedure note about the injection performed today. I discussed both the diagnostic and therapeutic benefit of the injection. The patient will contact the office in 2 weeks if she is no better for further treatment recommendations. The patient understands and agrees with the plan. They know to call if they have any further questions or concerns regarding their symptoms, or to follow up sooner if needed. [email or web address] Not available 01/20/2025 18:18:42 02/20/2025 02/20/2025 ICD-10: Left midfoot arthritis, hallux valgus CHIEF COMPLAINT: Left foot pain and swelling HISTORY OF PRESENT ILLNESS: Giselle is a very pleasant 79-year-old woman seen today as a new patient who has noted the development of swelling and pain about her left dorsal midfoot and her fifth metatarsal. This has been going on for 3-4 weeks. She denies any specific injury. She has bilateral lower extremity venous insufficiency and has had previous multiple vein stripping procedures. She wears compression stockings. She also has left hip/groin pain due to hip osteoarthritis. Her pain level is 4/10. She is here today for x-rays to ensure that nothing is broken. She denies any pain about her right foot. Her left foot pain has been improving over the past 2 weeks. Past family, medical, social history and review of systems has been reviewed, updated and is located in the patient? s chart. PHYSICAL EXAM: General: healthy appearing, in no acute distress Psych: alert and oriented x3, normal mood Skin: intact without ulceration or lesion, normal turgor Lungs: respirations unlabored Cardiac: heart rate regular, normal peripheral pulses Musculoskeletal: She has bilateral moderate to severe hallux valgus deformities without lesser toe deformities. Her gait is mildly antalgic on the left. On seated exam, she is tender about the dorsal midfoot over her lesser TMT joints and over her fifth metatarsal. There is no bony crepitus. Her midfoot is stable. She is nontender over her medial eminence/bunion. The deformity is not fully passively corrected. She is distally neurovascularly intact. There is bilateral lower extremity swelling. There is no infectious change. X-RAYS: Five standing views of the bilateral feet and ankles were ordered, obtained and reviewed by me today at [facility], demonstrating moderate bilateral hallux valgus deformities, left midfoot arthritis involving the lesser TMT joints, no evidence of acute fracture. There is osteopenia. IMPRESSION: Left midfoot arthritis, hallux valgus PLAN: I discussed these findings with Giselle. Given her pain, swelling an antalgic gait, I have recommended a brief period of immobilization in a short CAM boot, which was provided today. I also recommended OTC orthotics. She will follow up with me in 4 weeks to ensure that she is improving. If pain persists, an MRI of the left foot may be indicated to evaluate her midfoot arthritis and to rule out nondisplaced stress fracture. We may consider correcting her left hallux valgus deformity likely with a first MTP fusion in the future as I believe her bunion is altering her gait and putting more stress on her lesser toes. All questions were answered. The patient is ambulatory, but has weakness and/or instability of their extremity which requires stabilization from this semi-rigid/rigid orthosis to improve their function. Verbal and written instructions for the use and application of this item were given. Patient was instructed that should the brace result in increased pain, decreased sensation, increased swelling or an overall worsening of their medical condition, to please contact our office immediately. [email or web address] Not available 02/20/2025 11:02:18 Plan of Treatment Reminders Order Date Submit Date Provider Last Modified By Organization Details Last Modified Time Details Appointments RECHECK 15 2024 10:45A M Alex Vargas MD Not available Not available Not available INTRA HIP INJECTION 2024 11:00A Poly Doss PA-C Not available Not available Not available Lab None recorded. Referral None recorded. Procedures None recorded. Surgeries None recorded. Imaging XR, ankle + foot - # 108 ---3V FOOT WB, 2V ANKLE WB 2024 [facility], [address], [address], [place], [address], 03/02/2025 11:35:16 Medication Orders None recorded. Patient TargetsNo targets recorded. Patient InstructionsNo instructions recorded. Reason for Referral None Reported. Results Created Date Observation Date Name Description Value Unit Range Abnormal Flag Note LastModifiedBy Organization Detail LastModifiedTime 02/21/20 25 02/20/2025 XR, ankle + foot http:/ [email or web address] ?Encry pted=s hAaTro YD8dLq bEUv6g %2BXZw aYqtaq 0bqfl% 2Fg9IQ a4ajBk vP9nXo QUaueC m3YtLR FvZlgJ JJ8mAn HZtai3 8u1528 AC0Kla nyNUqq mKiQtr MwF INTERFACE [facility] [address], [place], [address], 02/20/2025 10:38:17 02/21/20 25 02/20/2025 XR, ankle + foot http:/ [email or web address] ?Encry pted=s hAaTro YD8dLq bEUv6g %2BXZw aYqtaq 0bqfl% 2Fg9IQ a4ajBk vP9nXo QUaueC m3YtLR FvZlgJ JJ8mAn HZtai3 2z7105 AC0Kla nyNUqq mKiQtr MwF INTERFACE [facility] [address], [place], [address], 02/20/2025 10:38:19 Result Notes None recorded. Problems Name Problem SNOMED Code Status Onset Date Resolution Date Notes Provider Name and Address Organization Details Recorded Time Pain of hip region 92614669 Active 025 Ivone fisher [place] - [facility] 5 15:56:27 Bilateral hallux valgus Active 025 Alex Vargas MD [address], [place], [address] , [facility] - [facility] 11:02:32 Problem Notes None recorded. Procedures Surgical History Date Name Laterality Status Provider Name and Address Organization Details Recorded Time 01/20/2025 BERENICEHip completed Santo Doss PA-C [address], [place], [address], [facility] 01/20/2025 18:19:05 Imaging Results Imaging Date Name Status LastModified by Organiz ation Details LastModified Time 02/20/2025 XR, ankle + foot completed INTERFACE [facility] [address], [place], [address], 02/20/2025 10:38:17 02/20/2025 XR, ankle + foot completed INTERFACE [facility] [address], [place], [address], 02/20/2025 10:38:19 Procedure Notes None recorded. Medical Equipment None Reported. Allergies Allergen ID Allergen Name Allergen Category Reaction Reaction Severity Criticality Documentation Date Start Date Code Code System Note Provider Name and Address Organization Details Recorded Time 531314 Product containin g penicilli n (product) medicatio n Not available Not available Not available 01/20/2025 39932 8001 SNOMED Ivone Hufnagel [facility], [facility] 15:50:52 819624 ibuprofen medicatio n Not available Not available Not available 01/20/2025 5640 RxNorm Ivone Hufnagel [facility] 15:51:00 745760 gabapenti n medicatio n Not available Not available Not available 01/20/2025 45034 RxNorm Ivone Hufnagel [facility] 15:51:06 Medications Name Sig Start Date Stop Date Status Note LastModified by Organization Details LastModified Time carvedilol 6.25 mg tablet TAKE 1 TABLET BY MOUTH TWICE A DAY 01/20 completed Not Available Not Available Not Available carvedilol 12.5 mg tablet TAKE 1 TABLET BY MOUTH TWICE A DAY FOR 30 DAYS active Not Available Not Available No t Available cetirizine 10 mg tablet TAKE 1 TABLET BY MOUTH EVERY DAY active Not Available Not Available No t Available valacyclovi r 1 gram tablet TAKE 1 TABLET BY MOUTH ONCE PER DAY. active Not Available Not Available No t Available sertraline 100 mg tablet TAKE 1 TABLET BY MOUTH EVERY DAY active Not Available Not Available No t Available atenolol 25 mg tablet TAKE HALF OF A TABLET DAILY 01/20 completed Not Available Not Available Not Available clopidogrel 75 mg tablet TAKE 1 TABLET BY MOUTH EVERY DAY active Not Available Not Available No t Available amlodipine 5 mg tablet TAKE 1 TABLET BY MOUTH EVERYDAY AT BEDTIME active Not Available Not Available No t Available oxycodone-a cetaminophe n 5 mg-325 mg tablet TAKE 1 TABLET BY MOUTH EVERY 6 HOURS IF NEEDED FOR MODERATE PAIN OR SEVERE PAIN FOR UP TO 28 DAYS. active Not Available Not Available No t Available diazepam 2 mg tablet TAKE 1 TABLET BY MOUTH 3 TIMES A DAY NEEDED SPASM FOR 7 DAYS 01/20 completed Not Available Not Available Not Available erythromyci n 5 mg/gram (0.5 %) eye ointment APPLY A SMALL AMOUNT ON EYELID FOUR TIMES A DAY APPLY TO INCISION SITES FOR 1 WEEK 01/20 completed Not Available Not Available Not Available clotrimazol e-betametha sone 1 %-0.05 % topical cream APPLY TO AFFECTED AREA TWICE A DAY active Not Available Not Available No t Available metronidazo le 0.75 % topical cream APPLY TO AFFECTED AREA TWICE A DAY active Not Available Not Available No t Available montelukast 10 mg tablet TAKE 1 TABLET BY MOUTH AT BEDTIME active Not Available Not Available No t Available ammonium lactate 12 % topical cream 1 APPLICATI ON EXTERNALL Y TWICE A DAY 30 DAYS active Not Available Not Available No t Available lisinopril 40 mg tablet TAKE 1 TABLET BY MOUTH EVERY DAY IN THE MORNING active Not Available Not Available No t Available loratadine 10 mg tablet TAKE 1 TABLET (10 MG) BY MOUTH DAILY NEEDED FOR ALLERGIES active Not Available Not Available No t Available moxifloxaci n 0.5 % eye drops INSTILL 1 DROP INTO BOTH EYES FOUR TIMES A DAY USE FOR 1 WEEK AFTER SURGERY active Not Available Not Available No t Available rosuvastati n 40 mg tablet TAKE 1 TABLET BY MOUTH EVERY DAY 01/20 completed Not Available Not Available Not Available pregabalin 25 mg capsule TAKE 1 CAPSULE (25 MG) BY MOUTH 2 TIMES EVERY DAY. active Not Available Not Available No t Available Eliquis 5 mg tablet TAKE 1 TABLET BY MOUTH TWICE A DAY active Not Available Not Available No t Available Plenvu 140 gram-9 gram-5.2 gram powder packs TAKE 3 PACKETS DISSOLVED IN WATER DIRECTED active Not Available Not Available No t Available Miebo (PF) 100 % eye drops INSTILL 1 DROP INTO BOTH EYES 4 TIMES A DAY DIRECTED active Not Available Not Available No t Available Vitals Date Recorded Body height Body mass index (BMI) Body weight Provider Name and Address Organization Details Last Updated DateTime 01/20/2025 157.48 cm 26.5 kg/m2 44166.89 g Ivone Ortiz [facility] 01/20/2025 15:50:16 Date Recorded Body height Body mass index (BMI) Body weight Provider Name and Address Organization Details Last Updated DateTime 02/20/2025 157.48 cm 26.5 kg/m2 40932.89 g FRANCIE ALEX [facility] 02/20/2025 10:27:05 Social History Question Answer Notes LastModified by Simpler Details LastModified Time Tobacco Smoking Status Never Smoker Ivone Ortiz [facility] 01/20/2025 15:54:37 What Is Your Relationship Status? Single Information not available 01/20/2025 Sex: Unknown Functional Status Question Answer Note LastModified by Insurance [employer] Details LastModified Time Do you use any illicit or recreational drugs? No Information not available 01/20/2025 Do you or have you ever used any other forms of tobacco or nicotine? No Information not available 01/20/2025 What is your level of alcohol consumption? None Information not available 01/20/2025 Mental Status None recorded. Family History Nothing Reported. Medical History Condition Response Coronary Artery Disease N Anxiety/Depression N Emphysema N COPD N Pacemaker N Vascular Disease N Heart Trouble Y Gastrointestinal Disease N Autoimmune disease N Inflammatory Joint disease N Orthotics N Arthritis Y Blood Clot N Acid Reflux (GERD) N Cancer N Stroke N Circulation Problems Y Rheumatoid Arthritis N Arrhythmia N Headaches N Fibromyalgia N Allergies/Hayfever N Breathing or lung disorders N Nerve Disorders N Thyroid Problems N Kidney/Bladder Problems N Anemia N Heart Attack ([place]) N Cholesterol Y Diabetes N Bleeding Disorder Y Seizures/Epilepsy N AIDS/HIV N Congestive Heart Failure (CHF) N Asthma N Peripheral Vascular Disease N Sleep Apnea N Hepatitis N Heart Disease N Pulmonary Embolism N Hypertension Y Osteoporosis N Gynecological HistoryNo gynecological history recorded. Obstetrics History GPAL:G 0 P 0 0 0 0 Past Encounters Encounter ID Performer Location Encounter Start Date Encounter Closed Date Diagnosis/Indication Diagnosis SNOMED-CT Code Diagnosis ICD10 Code Diagnosis Note [id number] BRENDA Blackmon [facility] [address] [place] [address] 01/20/2025 15:20:12 02/04/2025 12:00:47 Pain of hip region 77219467 M25.552 Osteoarthr itis of left hip joint 7876545642 23752 M16.12 [id number] MD RE[facility] [place] [address] [place] [address] 02/20/2025 10:19:58 03/02/2025 11:35:16 Pain in left foot 9033613636 00321 M79.672 Arthritis of left foot 3895655140 084800 M19.072 Bilateral hallux valgus 2652518419 M20.11 M20.12 Health Concerns Section Related Observation LastModified by Organization Detai ls LastModified Time None Recorded Concern Status LastModified by Organization Details LastModified Time None Recorded Advance Directives Directive None Recorded Payers Encounter Date Sequence Insurance Name Policy Number Policy Hough Covered Member ID Hough Member ID Guarantor Name 01/20/2025 1 [place] [employer] Giselle Shrestha [id number] Giselle Shrestha 01/20/2025 2 [place] [facility] Giselle Shrestha [id number] Giselle Shrestha 02/20/2025 1 [place] [employer] Gsielle Shrestha [id number] Giselle Shrestha 02/20/2025 2 [facility] - PLAN 1 (MEDICARE SUPPLEMENT) [id number] Giselle Shrestha [id number] Giselle Shrestha OBGyn Episode No OBEpisode recorded.
--- OUTSIDE RECORDS SUMMARY | 2025-03-10 15:21 | XMS_ITS | Patient Health Record ---
Author Organization [employer] [facility] Address [address] [place] [address] Care Team Providers Care Spot Welder Body Assembly Name Role Phone Loretta Spencer Unavailable [phone] Reason For Referral No Information Medications Medication SIG (Take, Route, Frequency, Duration) Notes Start Date End Date Status Citalopram Hydrobromide 20MG 1 ORAL daily for -3 [facility] 02/27/2013 Active Calcium-Carb 600 + D 1 ORAL daily for -3 [facility] 3 Active Simvastatin 40MG 1 ORAL daily for -3 [facility] 02/27/2013 Active Problems Problem Type SNOMED Code ICD Code Onset Dates Problem Status W/U Status Risk Notes Problem Hyperlipidemia (14782839) Other and unspecified hyperlipidemia (272.4) Active confirmed Major Problem Anxiety state, unspecified (300.00) Active confirmed Major Problem Benign essential hypertension (5528448) Essential hypertension, benign (401.1) Active confirmed Major Problem Osteoporosis (57160516) Unspecified osteoporosis (733.00) Active confirmed Diag Problem Gynecological examination normal (580344779293755) Routine gynecological examination (V72.31) Active confirmed Diag Plan Of Treatment No Information Insurance Providers Payer Name Payer Address Payer Phone Subscriber Number Group Number Insured Name Patient Relationship to Insured Coverage Start Date Coverage End Date MEDICARE [address] [place] [id number] VEE SUMNER Self - patient is the insured [facility] [address] [place] [address] [id number] VEE SUMNER Self - patient is the insured
--- OUTSIDE RECORDS SUMMARY | 2025-03-10 15:21 | XMS_ITS | Encounter Summary ---
Author Organization [employer] Address [address] [place] [address] Care Team Providers Care Production Bow Maker Name Role Phone Alicia Hdez MD Primary Care Provider [phone] Encounter Details Date Type Department Care Team (Late st Contact Info) Description 03/28/2024 Orders Only [place] [facility] MEDICAL [address] [place] [address] Mary aGrcia, MECHANICAL ASSEMBLY [address] [place] [address] Vaginal burning; Vulvodynia; Dysuria Social History Tobacco Use Types Packs/Day Years [...] the past 12 months, has t he [employer], gas, oil or water company threatened to [...] Description 06/11/2025 11:30 AM EDT Office Visit [facility] MEDICAL [address] [place] [address] Alicia Hdez MD [address] [place] [address] documented as of this encounter Visit Diagnoses Diagnosis Vaginal burning Other specified symptom associated with female genital organs Vulvodynia Dysuria documented in this encounter Care Teams Production Bow Maker Relationship Specialty Start Date End Date Alicia Hdez MD [address] [place] [address] PCP - General Internal Medicine 10/25/22January Elsa Registered Nurse Case Management 08/08/23 documented as of this encounter
--- OUTSIDE RECORDS SUMMARY | 2025-03-10 15:21 | XMS_ITS | Encounter Summary ---
Author Organization [employer] Address [address] [place] [address] Care Team Providers Care Field Interviewer Name Role Phone Alicia Hdez MD Primary Care Provider [phone] Reason for Visit * Reason Onset Date Comments Med Refill 03/09/2025 [facility] Rx refill on Oxycodone-apap Encounter Details Date Type Department Care Team (Late st Contact Info) Description 03/09/2025 Refill [facility] MEDICAL [address] [place] [address] Alicia Hdez MD [address] [place] [address] Chronic pain disorder Social History Tobacco Use [...] t he electric, gas, oil or water [employer] threatened to shut off services in your [...] PM EST documented as of this encounter Miscellaneous Notes * Telephone Encounter - SRI Dominguez - 03/09/2025 2:05 PM EDT [facility] Last fill Date: 02/12/25 #[id number] [facility] sold Date 02/12 Last OV: 03/03/25 Next OV: 06/11/25 Last UTOX: 12/02/24 CSA Date: 07/28/23 DNF Date: refill due 03/12 documented in this encounter Plan of Treatment Upcoming Encounters Date Type Department Care Team (Late st Contact Info) Description 06/11/2025 11:30 AM EDT Office Visit [place] [facility] MEDICAL [address] [place] [address] Alicia Hdez MD [address] [place] [address] documented as of this encounter Visit Diagnoses Diagnosis Chronic pain disorder Chronic pain syndrome documented in this encounter Care Teams Field Interviewer Relationship Specialty Start Date End Date Alicia Hdez MD [address] [place] [address] PCP - General Internal Medicine 10/25/22January Elsa Registered Nurse Case Management 08/08/23 documented as of this encounter
== END 2025-03-10 15:29 | disposition home or self-care (01) ==
LOC: HO.HPS 14:09
PROVIDERS: PCP Internal Medicine; Visit Provider Hospitalist
DX: J45.40 Moderate persistent asthma, uncomplicated (principal); J84.9 Interstitial pulmonary disease, unspecified; R07.9 Chest pain, unspecified
CPT/HCPCS: 99214

== ENCOUNTER → 2025-03-10 14:09 | Outpatient (BNVA) | payer MEDICARE, OTHER, SELFPAY | PROVIDERS: PCP Internal Medicine; Visit Provider Hospitalist | DX: J45.40 Moderate persistent asthma, uncomplicated (principal); J84.9 Interstitial pulmonary disease, unspecified; R07.9 Chest pain, unspecified | CPT/HCPCS: 99212 ==